=== PATIENT | male | born 2000 | race Caucasian/White ===

== ENCOUNTER 2022-05-14 11:57 | Emergency (ER) | payer OTHER, SELFPAY ==
[2022-05-14 12:00] VITALS: BP 157/105; PULSE 110; RESP 17; TEMP 36.4; O2SAT 99; BMI 24.9
--- NOTE | 2022-05-14 12:07 | DI.RAD.S_ITS ---
PROCEDURE: XR CHEST 1V INDICATIONS: Upper abdominal pain TECHNIQUE: One view of the chest was acquired. COMPARISON: None. FINDINGS: Surgical changes and devices: None. Lungs and pleura: Lungs are clear. No pleural effusions or pneumothorax. Mediastinum: Mediastinal contours appear normal. Heart size is normal. Bones and chest wall: No suspicious bony lesions. Overlying soft tissues appear unremarkable. IMPRESSION: No acute cardiopulmonary abnormality. Dictated by: Panchito Stubbs M.D. on 05/14/2022 at 12:18 Approved by: Panchito Stubbs M.D. on 05/14/2022 at 12:19
--- NOTE | 2022-05-14 12:16 | ED.ABDPAIN ---
HPI - Abdominal Pain <Kahlil Sarabia PA-C - Last Filed: 05/14/22 18:44> General Chief Complaint: Abdominal Pain Stated Complaint: abd pain hasnt eaten 3days nothing stays down Time Seen by Provider: 05/14/22 12:00 History of Present Illness HPI narrative: This is a 22-year-old male presents emergency department due to 3 days of nausea and vomiting. Also reporting epigastric abdominal pain. Patient states that he has been unable to keep anything down for the last 3 days. Anything he eats he vomits up. Denies any blood in the vomit. Also reports diarrhea but no other abnormalities in bowel movements. No blood in stool. Denies any fevers, chest pain, shortness of breath, or any other significant concerning signs or symptoms. States he has a history of GI ulcers and this feels very similar. Related Data Previous Rx's Medication Instructions Recorded ondansetron 4 mg disintegrating 4 mg PO Q8H PRN nausea and 05/14/22 tablet vomiting #30 tabs pantoprazole 40 mg tablet,delayed 40 mg PO BID 14 days #28 tabs 05/14/22 release Review of Systems <Kahlil Sarabia PA-C - Last Filed: 05/14/22 18:44> Review of Systems Narrative: GENERAL: Denies chills, fatigue, malaise, fever, sweats. HEENT: Denies sinus pain, ear pain, sore throat, difficulty swallowing, dizziness. RESPIRATORY: Denies dyspnea, cough, wheezing, hemoptysis, sputum. CARDIOVASCULAR: Denies chest pain, palpitations, orthopnea, edema, GASTROINTESTINAL: Reports abdominal pain, nausea, vomiting, denies diarrhea, constipation, melena. : Denies dysuria, frequency, incontinence, hematuria, urinary retention. MUSCULOSKELETAL: denies weakness, joint pain, or bony pain SKIN: Denies rash, skin lesions, or other NEUROLOGIC: Denies weakness, headache, numbness, change in speech, confusion, seizures, incoordination. PSYCHIATRIC: No concerning psychosocial issues. 12 point review of systems is negative except for those stated above Exam <Kahlil Sarabia PA-C - Last Filed: 05/14/22 18:44> Narrative Exam Narrative: GENERAL: Well-developed patient, in mild distress. HEAD: Atraumatic. Normocephalic. EYES: Pupils equal round and reactive. Extraocular motions intact. No scleral icterus. No injection or drainage. ENT: Nose without bleeding, purulent drainage. Throat without erythema, tonsillar hypertrophy or exudate. Airway patent. NECK: Trachea midline. Non tender CARDIOVASCULAR: Regular rate and rhythm without murmurs, gallops, or rubs. RESPIRATORY: Clear to auscultation. Breath sounds equal bilaterally. No wheezes, rales, or rhonchi. GASTROINTESTINAL: Abdomen soft, mild epigastric abdominal tenderness to palpation,, nondistended. EXTREMITIES: No edema or joint tenderness. BACK: Nontender without deformity or crepitance. No flank tenderness. NEURO: AOx3. SKIN: No rash or erythema of visible areas Initial Vital Signs Initial Vital Signs: Vital Signs Temperature 97.5 F L 05/14/22 12:00 Pulse Rate 110 H 05/14/22 12:00 Respiratory Rate 17 05/14/22 12:00 Blood Pressure 157/105 H 05/14/22 12:00 Pulse Oximetry 99 05/14/22 12:00 Oxygen Delivery Method 05/14/22 12:00 <Josue Alvarez DO - Last Filed: 05/17/22 02:31> Initial Vital Signs Initial Vital Signs: Vital Signs Temperature 97.5 F L 05/14/22 12:00 Pulse Rate 110 H 05/14/22 12:00 Respiratory Rate 17 05/14/22 12:00 Blood Pressure 157/105 H 05/14/22 12:00 Pulse Oximetry 99 05/14/22 12:00 Oxygen Delivery Method 05/14/22 12:00 Course <Kahlil Sarabia PA-C - Last Filed: 05/14/22 18:44> Orders Ordered: Discontinued Medications Sodium Chloride (Normal Saline 0.9%) 1,000 mls @ 1,000 mls/hr IV BOLUS ONE Stop: 05/14/22 13:06 Last Infusion: 05/14/22 13:55 Dose: 0 mls/hr Documented By: Admin: 05/14/22 12:21 Dose: 1,000 mls/hr Documented By: LYUBOV Lidocaine HCl (Lidocaine Viscous 2% 15 Ml Solution) 15 ml PO NOW ONE Stop: 05/14/22 12:22 Last Admin: 05/14/22 12:25 Dose: 15 ml Documented By: LYUBOV Ondansetron HCl (Ondansetron 4 Mg/2 Ml Inj) 4 mg IV NOW ONE Stop: 05/14/22 12:08 Last Admin: 05/14/22 12:21 Dose: 4 mg Documented By: LYUBOV Pantoprazole Sodium (Pantoprazole 40 Mg Vial) 40 mg IV NOW ONE Stop: 05/14/22 12:22 Last Admin: 05/14/22 12:25 Dose: 40 mg Documented By: LYUBOV Vital Signs Vital signs: Vital Signs - 8 hr 05/14/22 12:00 05/14/22 12:20 05/14/22 12:30 Temperature 97.5 F L Pulse Rate 110 H 92 H Respiratory Rate 17 22 Blood Pressure 157/105 H 151/96 H Pulse Oximetry 99 98 Oxygen Delivery Method Room Air 05/14/22 12:30 05/14/22 13:00 05/14/22 13:00 Temperature Pulse Rate 81 73 Respiratory Rate 22 22 Blood Pressure 148/88 H Pulse Oximetry 96 98 Oxygen Delivery Method 05/14/22 13:30 05/14/22 13:30 05/14/22 14:00 Temperature Pulse Rate 89 Respiratory Rate 20 Blood Pressure 154/75 H 156/94 H Pulse Oximetry 99 Oxygen Delivery Method 05/14/22 14:00 Temperature Pulse Rate 93 H Respiratory Rate 20 Blood Pressure Pulse Oximetry 100 Oxygen Delivery Method <Josue Alvarez, - Last Filed: 05/17/22 02:31> Orders Ordered: Discontinued Medications Sodium Chloride (Normal Saline 0.9%) 1,000 mls @ 1,000 mls/hr IV BOLUS ONE Stop: 05/14/22 13:06 Last Infusion: 05/14/22 13:55 Dose: 0 mls/hr Documented By: Admin: 05/14/22 12:21 Dose: 1,000 mls/hr Documented By: LYUBOV Lidocaine HCl (Lidocaine Viscous 2% 15 Ml Solution) 15 ml PO NOW ONE Stop: 05/14/22 12:22 Last Admin: 05/14/22 12:25 Dose: 15 ml Documented By: LYUBOV Ondansetron HCl (Ondansetron 4 Mg/2 Ml Inj) 4 mg IV NOW ONE Stop: 05/14/22 12:08 Last Admin: 05/14/22 12:21 Dose: 4 mg Documented By: LYUBOV Pantoprazole Sodium (Pantoprazole 40 Mg Vial) 40 mg IV NOW ONE Stop: 05/14/22 12:22 Last Admin: 05/14/22 12:25 Dose: 40 mg Documented By: CTS Vital Signs Vital signs: Vital Signs - 8 hr 05/14/22 12:00 05/14/22 12:20 05/14/22 12:30 Temperature 97.5 F L Pulse Rate 110 H 92 H Respiratory Rate 17 22 Blood Pressure 157/105 H 151/96 H Pulse Oximetry 99 98 Oxygen Delivery Method Room Air 05/14/22 12:30 05/14/22 13:00 05/14/22 13:00 Temperature Pulse Rate 81 73 Respiratory Rate 22 22 Blood Pressure 148/88 H Pulse Oximetry 96 98 Oxygen Delivery Method 05/14/22 13:30 05/14/22 13:30 05/14/22 14:00 Temperature Pulse Rate 89 Respiratory Rate 20 Blood Pressure 154/75 H 156/94 H Pulse Oximetry 99 Oxygen Delivery Method 05/14/22 14:00 Temperature Pulse Rate 93 H Respiratory Rate 20 Blood Pressure Pulse Oximetry 100 Oxygen Delivery Method MDM - Abdominal Pain <Kahlil Sarabia PA-C - Last Filed: 05/14/22 18:44> Lab Data Result diagrams: 05/14/22 12:10 05/14/22 12:10 Labs: Lab Results 05/14/22 05/14/22 Range/Units 12:10 12:10 WBC 9.5 (4.5-11.0) X10^3/uL RBC 4.95 (4.5-5.9) X10^6/uL Hgb 15.4 (13.5-17.5) g/dL Hct 45.5 (41-53) % MCV 91.9 (80-100) fL MCH 31.1 (26-34) PG MCHC 33.8 (30-36) % RDW 14.0 (11.6-14.8) % Plt Count 360 (150-400) X10^3/uL Neut % (Auto) 68.0 (50-75) % Lymph % (Auto) 19.3 L (25-40) % [place] % (Auto) 8.7 (3-14) % Eos % (Auto) 3.0 (2-4) % Baso % (Auto) 1.0 (0-2) % Neut # (Auto) 6500 (5383-0371) /uL Lymph # (Auto) 1800 (2539-8222) /uL [place] # (Auto) 800 (0-900) /uL Eos # (Auto) 300 (0-450) /uL Baso # (Auto) 100 (0-100) /uL Sodium 137 (137-145) mmol/L Potassium 3.7 (3.4-5.1) mmol/L Chloride 99 (98-107) mmol/L Carbon Dioxide 27 (22-32) mmol/L BUN 9 (9-20) mg/dL Creatinine 1.04 (0.66-1.25) mg/dL Estimated GFR > 60 (>60) mL/min BUN/Creatinine Ratio 8.7 (6-22) Glucose 94 (70-100) mg/dL Calcium 9.3 (8.4-10.2) mg/dL Total Bilirubin 1.6 H (0.2-1.3) mg/dL AST 79 H (17-59) IU/L ALT 65 H (<50) IU/L Alkaline Phosphatase 115 (38-126) U/L Total Protein 8.7 H (6.3-8.2) g/dL Albumin 5.0 (3.5-5.0) g/dL Globulin 3.7 (1.7-4.1) g/dL Albumin/Globulin Ratio 1.4 (1.0-2.8) Lipase 88 (23-300) U/L Imaging Data Chest x-ray: Radiologist's Impression: [address] [address] XRay Report Signed Patient: Kervin Castillo MR#: [id number] : 2000 Acct:[id number] Age/Sex: 22 / M Date of Service: 05/14/22 Loc: ED Accession Number: [id number] ?? Procedure: XR chest 1V Ordering Provider: Kahlil Sarabia P.A-C PROCEDURE:? XR CHEST 1V ? INDICATIONS:? Upper abdominal pain ? TECHNIQUE:? One view of the chest was acquired.? ? COMPARISON:? None. ? FINDINGS:? ? Surgical changes and devices:? None.? ? Lungs and pleura:? Lungs are clear.? No pleural effusions or pneumothorax.? ? Mediastinum:? Mediastinal contours appear normal.? Heart size is normal.? ? Bones and chest wall:? No suspicious bony lesions.? Overlying soft tissues appear unremarkable.? ? IMPRESSION:? No acute cardiopulmonary abnormality. ? ? ? Dictated by: Panchito Stubbs M.D. on 05/14/2022 at 12:18 ? ? Approved by: Panchito Stubbs M.D. on 05/14/2022 at 12:19 ? US - abdomen: Radiologist's Impression: [address] [address] Ultrasound Report Signed Patient: Kervin Castillo MR#: [id number] : 2000 Acct:[id number] Age/Sex: 22 / M Date of Service: 05/14/22 Loc: ED Accession Number: [id number] ?? Procedure: US abdomen limited Ordering Provider: Kahlil Sarabia P.A-C PROCEDURE: US ABDOMEN LIMITED ? INDICATIONS:? Eval RUQ gallbladder/liver ? TECHNIQUE:? Real-time focused scanning was performed of the abdomen, with image documentation.? ? COMPARISON:? None. ? FINDINGS:? The liver demonstrates normal size. The liver demonstrates generalized prominently increased echogenicity. This decreases ultrasound sensitivity for detection of hepatic masses.? ? No findings of gallstones or sludge are seen.? The gallbladder wall is not thickened, measuring 3 mm or less.? No specific pericholecystic fluid is seen.? The sonographic Enriquez sign is negative. ? Within the liver, there is echogenic material seen within the intrahepatic biliary ducts. ?There is no biliary dilatation, the common bile duct measures 3 mm.? ? The pancreas is not well seen. ? Overall scan quality is limited by the hyperechoic liver. ? IMPRESSION:? Prominently fatty liver. ? The gallbladder demonstrates a normal sonographic appearance. No biliary dilatation is seen. ? Apparent hyperechoic material can be seen within the intrahepatic biliary ducts.? Please correlate with known patient history.? If clinically appropriate, please consider a follow-up liver CT or liver MRI for further evaluation.? ? Dictated by: Arnulfo Manning M.D. on 05/14/2022 at 12:59 ? ? Approved by: Arnulfo Manning M.D. on 05/14/2022 at 13:01 ? MDM Narrative Medical decision making narrative: This is a 22-year-old male presents to the emergency department due to 3 days of nausea and vomiting with upper abdominal pain. States it has a history of ?GI ulcers and this feels very similar. Lab work unremarkable for any kind of infection or acute anemia. No electrolyte abnormalities. Chest x-ray negative for any kind of perforation and no free air noted. Right upper quadrant ultrasound was ordered due to mildly elevated liver enzymes and bilirubin. Ultrasound showed evidence of fatty liver as well as a ?apparent hyperechoic material can be seen in the intrahepatic biliary ducts? which I advised him to follow up with his primary care provider about. Patient will be discharged with a prescription for pantoprazole, Zofran, and instructions to eat a bland diet. Patient passed p.o. challenge. <Josue Alvarez DO - Last Filed: 05/17/22 02:31> Lab Data Labs: Lab Results 05/14/22 05/14/22 Range/Units 12:10 12:10 WBC 9.5 (4.5-11.0) X10^3/uL RBC 4.95 (4.5-5.9) X10^6/uL Hgb 15.4 (13.5-17.5) g/dL Hct 45.5 (41-53) % MCV 91.9 (80-100) fL MCH 31.1 (26-34) PG MCHC 33.8 (30-36) % RDW 14.0 (11.6-14.8) % Plt Count 360 (150-400) X10^3/uL Neut % (Auto) 68.0 (50-75) % Lymph % (Auto) 19.3 L (25-40) % [place] % (Auto) 8.7 (3-14) % Eos % (Auto) 3.0 (2-4) % Baso % (Auto) 1.0 (0-2) % Neut # (Auto) 6500 (2154-0954) /uL Lymph # (Auto) 1800 (4990-3976) /uL [place] # (Auto) 800 (0-900) /uL Eos # (Auto) 300 (0-450) /uL Baso # (Auto) 100 (0-100) /uL Sodium 137 (137-145) mmol/L Potassium 3.7 (3.4-5.1) mmol/L Chloride 99 (98-107) mmol/L Carbon Dioxide 27 (22-32) mmol/L BUN 9 (9-20) mg/dL Creatinine 1.04 (0.66-1.25) mg/dL Estimated GFR > 60 (>60) mL/min BUN/Creatinine Ratio 8.7 (6-22) Glucose 94 (70-100) mg/dL Calcium 9.3 (8.4-10.2) mg/dL Total Bilirubin 1.6 H (0.2-1.3) mg/dL AST 79 H (17-59) IU/L ALT 65 H (<50) IU/L Alkaline Phosphatase 115 (38-126) U/L Total Protein 8.7 H (6.3-8.2) g/dL Albumin 5.0 (3.5-5.0) g/dL Globulin 3.7 (1.7-4.1) g/dL Albumin/Globulin Ratio 1.4 (1.0-2.8) Lipase 88 (23-300) U/L Discharge Plan Departure Patient Disposition: Home Clinical Impression: Fatty liver, Gastrointestinal ulcer Instructions: DI for Gastric Ulcer, DI for Peptic Ulcer Activity Restrictions/Additional Instructions: Thank you for coming to the [facility] Emergency Department today. The chest x-ray showed no abnormalities and the right upper quadrant ultrasound showed evidence of fatty liver which are recommend you follow-up with the primary care provider about. Your lab work was unremarkable. There was no evidence of any electrolyte abnormalities or infection. I suspect this is a flare-up of your chronic GI ulcer. The pantoprazole and Zofran prescribed should help with your symptoms. Please eat a bland diet to avoid any future flare-ups. The more you avoid alcohol and smoking the less likely further flare-ups like this will happen. I hope you feel better soon. Prescriptions: New pantoprazole 40 mg tablet,delayed release (DR/EC) 40 mg PO BID 14 Days Qty: 28 0RF ondansetron 4 mg tablet,disintegrating 4 mg PO Q8H PRN (Reason: nausea and vomiting) Qty: 30 0RF Referrals: ProviderJoelle [Primary Care Provider] - Visit Report Forms: Patient Portal/API <Josue Alvarez DO - Last Filed: 05/17/22 02:31> Cosign ED Attending Pascualature Attestation: I was immediately available in the department for consultation. This documentation has been reviewed and I agree with assessment and plan. Supervised by Josue Alvarez, DO
[2022-05-14 12:20] VITALS: PULSE 92; RESP 22; O2SAT 98
[2022-05-14] MEDS: ONDANSETRON 4 MG/2 ML INJ IV (12:21)
[2022-05-14] MEDS: SODIUM CHLORIDE 0.9% 1,000 ML 1000 ML IV (12:21)
[2022-05-14] MEDS: LIDOCAINE VISCOUS 2% 15 ML SOLUTION PO (12:25)
[2022-05-14] MEDS: PANTOPRAZOLE 40 MG VIAL IV (12:25)
[2022-05-14 12:27] LABS: Add Manual Diff / Slide Review NO; Basophils Absolute Auto 100 /uL (0-100); Eosinophils Absolute Auto 300 /uL (0-450); Hematocrit 45.5 % (41-53); Hemoglobin 15.4 g/dL (13.5-17.5); Lymphocytes Absolute Auto 1800 /uL (1100-4500); Lymphocytes Percent Auto 19.3 % (25-40); Mean Corpuscular HGB Conc 33.8 % (30-36); Mean Corpuscular Hemoglobin 31.1 PG (26-34); Mean Corpuscular Volume 91.9 fL (80-100); Monocytes Absolute Auto 800 /uL (0-900); Monocytes Percent Auto 8.7 % (3-14); Neutrophils Absolute Auto 6500 /uL (1500-7000); Platelet Count 360 X10^3/uL (150-400); Red Blood Cell Count 4.95 X10^6/uL (4.5-5.9); White Blood Cell Count 9.5 X10^3/uL (4.5-11.0)
[2022-05-14 12:30] VITALS: BP 151/96; PULSE 81; RESP 22; O2SAT 96
[2022-05-14 12:34] LABS: Alanine Aminotransferase 65 IU/L (<50); Albumin Globulin Ratio 1.4 (1.0-2.8); Alkaline Phosphatase 115 U/L (38-126); Aspartate Aminotransferase 79 IU/L (17-59); BUN Creatinine Ratio 8.7 (6-22); Bilirubin Total 1.6 mg/dL (0.2-1.3); Blood Urea Nitrogen 9 mg/dL (9-20); Calcium 9.3 mg/dL (8.4-10.2); Carbon Dioxide 27 mmol/L (22-32); Chloride 99 mmol/L (98-107); Estimated Glomerular Filt Rate > 60 mL/min (>60); Globulin 3.7 g/dL (1.7-4.1); Glucose 94 mg/dL (70-100); HEMOLYSIS < 15 (0-50); Lipase 88 U/L (23-300); Potassium 3.7 mmol/L (3.4-5.1); Sodium 137 mmol/L (137-145); Total Protein 8.7 g/dL (6.3-8.2)
--- NOTE | 2022-05-14 12:57 | DI.US.S_ITS ---
PROCEDURE: US ABDOMEN LIMITED INDICATIONS: Eval RUQ gallbladder/liver TECHNIQUE: Real-time focused scanning was performed of the abdomen, with image documentation. COMPARISON: None. FINDINGS: The liver demonstrates normal size. The liver demonstrates generalized prominently increased echogenicity. This decreases ultrasound sensitivity for detection of hepatic masses. No findings of gallstones or sludge are seen. The gallbladder wall is not thickened, measuring 3 mm or less. No specific pericholecystic fluid is seen. The sonographic Enriquez sign is negative. Within the liver, there is echogenic material seen within the intrahepatic biliary ducts. There is no biliary dilatation, the common bile duct measures 3 mm. The pancreas is not well seen. Overall scan quality is limited by the hyperechoic liver. IMPRESSION: Prominently fatty liver. The gallbladder demonstrates a normal sonographic appearance. No biliary dilatation is seen. Apparent hyperechoic material can be seen within the intrahepatic biliary ducts. Please correlate with known patient history. If clinically appropriate, please consider a follow-up liver CT or liver MRI for further evaluation. Dictated by: Arnulfo Manning M.D. on 05/14/2022 at 12:59 Approved by: Arnulfo Manning M.D. on 05/14/2022 at 13:01
[2022-05-14 13:00] VITALS: BP 148/88; PULSE 73; RESP 22; O2SAT 98
[2022-05-14 13:30] VITALS: BP 154/75; PULSE 89; RESP 20; O2SAT 99
[2022-05-14 14:00] VITALS: BP 156/94; PULSE 93; RESP 20; O2SAT 100
== END 2022-05-14 14:22 | disposition home or self-care (01) ==
PROVIDERS: Emergency Provider Physician Assistant Medical
DX: K28.9 Gastrojejunal ulcer, unspecified as acute or chronic, without hemorrhage or perforation (principal); K76.0 Fatty (change of) liver, not elsewhere classified; R11.2 Nausea with vomiting, unspecified
CPT/HCPCS: 36415; 71045; 76705; 80053; 83690; 85025; 96361; 96374; 96375; 99284; C9113; J2405

== ENCOUNTER 2022-07-15 10:15 | Emergency (ER) | payer OTHER, SELFPAY ==
[2022-07-15 11:08] VITALS: BP 165/93; PULSE 75; RESP 18; TEMP 36.4; O2SAT 99; BMI 24.3
[2022-07-15] MEDS: ONDANSETRON 4 MG ODT SL (11:17)
[2022-07-15 13:03] LABS: Add Manual Diff / Slide Review NO; Basophils Absolute Auto 100 /uL (0-100); Basophils Percent Auto 1.2 % (0-2); Eosinophils Absolute Auto 100 /uL (0-450); Eosinophils Percent Auto 1.6 % (2-4); Hematocrit 48.8 % (41-53); Hemoglobin 16.4 g/dL (13.5-17.5); Lymphocytes Absolute Auto 900 /uL (1100-4500); Lymphocytes Percent Auto 13.4 % (25-40); Mean Corpuscular HGB Conc 33.7 % (30-36); Mean Corpuscular Hemoglobin 32.2 PG (26-34); Mean Corpuscular Volume 95.6 fL (80-100); Monocytes Absolute Auto 800 /uL (0-900); Monocytes Percent Auto 11.7 % (3-14); Neutrophils Absolute Auto 5000 /uL (1500-7000); Neutrophils Percent Auto 72.1 % (50-75); Platelet Count 266 X10^3/uL (150-400); Red Cell Distribution Width 15.3 % (11.6-14.8)
--- NOTE | 2022-07-15 13:05 | ED_ITS ---
HPI - GI Bleed <MARTA Solares - Last Filed: 07/15/22 16:00> General Chief complaint: GI Bleed Stated complaint: possible dehydration, diarrhea x4 days Time Seen by Provider: 07/15/22 13:02 Source: patient Mode of arrival: Ambulatory History of Present Illness HPI Narrative: This is a 22-year-old male who has significant medical history upper GI bleeding due to gastric ulcers, GERD, who presents to the emergency department with worsening symptoms over the last 2 months with hematochezia, melena, states that he has had diarrhea over the last 4 days. He is enrolled in the [facility], states that he has had 9 upper endoscopies with findings of gastric ulcer but since he has been in the [facility], he has not been on sustained PPI or had any long-term care for his upper GI bleeding. States that he has had an ultrasound and an x-ray of his chest but his doctors would not approve a CT scan so he was sent to the emergency department for evaluation of his complaint. Patient denies fever, chills, states that he thinks he is dehydrated and feels that he has not kept anything down any couple of days or has gone right through him. He denies having a large amount of blood in these episodes of emesis or diarrhea. Denies having hemorrhoids. States that he does not take ibuprofen, drink coffee, denies heavy alcohol use, states that he has had history of GERD since he was 11 years old. Related Data Previous Rx's Medication Instructions Recorded ondansetron 4 mg disintegrating 4 mg PO Q8H PRN nausea and 05/14/22 tablet vomiting #30 tabs amoxicillin 875 mg-potassium 1 tab PO BID 7 days #14 tabs 07/15/22 clavulanate 125 mg tablet omeprazole 40 mg capsule,delayed 40 mg PO BID #90 caps 07/15/22 release ondansetron 4 mg disintegrating 4 mg PO Q8H PRN nausea and 07/15/22 tablet vomiting #30 tabs sucralfate 1 gram tablet (Carafate) 1 g PO BID PRN upper gi pain #60 07/15/22 tabs Allergies Allergy/AdvReac Type Severity Reaction Status Date / Time No Known Drug Allergies Allergy Verified 07/15/22 11:08 Review of Systems <MARTA Solares - Last Filed: 07/15/22 16:00> Review of Systems ROS Unobtainable: All systems reviewed & are unremarkable except as noted in HPI and below Patient History <MARTA Solares - Last Filed: 07/15/22 16:00> Social History Smoking Status: Never smoker Smoking Status: Never smoker alcohol intake frequency: holidays/special occasions only Substance Use Type: does not use Exam <MARTA Solares - Last Filed: 07/15/22 16:00> Narrative Exam Narrative: Reviewed vitals signs and nursing notes. General: cooperative, comfortable, in no acute distress, well groomed, afebrile HEENT: symmetrical facial expressions, dry mucous membranes Cardiovascular: regular rate and rhythm, without tachycardia, pallor, no peripheral edema, warm extremities Respiratory: normal effort, able to speak in complete sentences, without wheezing, stridor, or abnormal breath sounds. Without cough. No retractions or tachypnea. GI: abdomen soft, tender to palpation over the epigastrium, nontender to palpation otherwise, nondistended, without masses, rebound tenderness or exquisite tenderness with exam yes. No CVAT MSK: moves all extremities, neurovascularly intact, no weakness, normal tone Skin: brisk capillary refill, without pallor diaphoresis, or erythema Neuro: normal speech and cognition, A&O x3, ambulatory, clear speech Psych: mental status is grossly normal, congruent mood, normal affect, pleasant and cooperative Initial Vital Signs Initial Vital Signs: Vital Signs Temperature 97.6 F 07/15/22 11:08 Pulse Rate 75 07/15/22 11:08 Respiratory Rate 18 07/15/22 11:08 Blood Pressure 165/93 H 07/15/22 11:08 Pulse Oximetry 99 07/15/22 11:08 Oxygen Delivery Method 07/15/22 11:08 <Josue Alvarez DO - Last Filed: 07/17/22 11:02> Initial Vital Signs Initial Vital Signs: Vital Signs Temperature 97.6 F 07/15/22 11:08 Pulse Rate 75 07/15/22 11:08 Respiratory Rate 18 07/15/22 11:08 Blood Pressure 165/93 H 07/15/22 11:08 Pulse Oximetry 99 07/15/22 11:08 Oxygen Delivery Method 07/15/22 11:08 Course <Maryse Felix PROSECUTING ATTORNEY - Last Filed: 07/15/22 16:00> Orders Ordered: Discontinued Medications Acetaminophen (Acetaminophen 325 Mg Tablet) 975 mg PO NOW ONE Stop: 07/15/22 14:52 Last Admin: 07/15/22 15:48 Dose: 975 mg Documented By: GUILHERME Amoxicillin/Clavulanate Potassium (Amoxicillin/Clav 875/125 Mg) 1 tab PO NOW ONE Stop: 07/15/22 14:43 Last Admin: 07/15/22 14:47 Dose: 1 tab Documented By: GUILHERME Al Hydrox/Mg Hydrox/Simethicone 20 ml/ Lidocaine HCl 15 ml 0 ml PO NOW ONE Stop: 07/15/22 13:03 Last Admin: 07/15/22 13:18 Dose: 30 ml Documented By: GUILHERME Hydromorphone HCl (Hydromorphone 0.5 Mg Inj) 0.5 mg IV NOW ONE Stop: 07/15/22 13:30 Last Admin: 07/15/22 13:33 Dose: 0.5 mg Documented By: GUILHERME Sodium Chloride (Normal Saline 0.9%) 1,000 mls @ 1,000 mls/hr IV BOLUS ONE Stop: 07/15/22 14:09 Last Infusion: 07/15/22 14:40 Dose: 0 mls/hr Documented By: Admin: 07/15/22 13:19 Dose: 1,000 mls/hr Documented By: GUILHERME Lidocaine HCl (Lidocaine Viscous 2% 15 Ml Solution) 15 ml PO NOW ONE Stop: 07/15/22 13:31 Last Admin: 07/15/22 13:31 Dose: 15 ml Documented By: GUILHERME Ondansetron HCl (Ondansetron 4 Mg/2 Ml Inj) 4 mg IV NOW PRN PRN Reason: Nausea And Vomiting Last Admin: 07/15/22 13:31 Dose: 4 mg Documented By: GUILHERME Ondansetron HCl (Ondansetron 4 Mg Odt) 4 mg SL NOW PRN PRN Reason: Nausea And Vomiting Last Admin: 07/15/22 11:17 Dose: 4 mg Documented By: YOBANY Pantoprazole Sodium (Pantoprazole 40 Mg Vial) 80 mg IV NOW ONE Stop: 07/15/22 11:16 Last Admin: 07/15/22 13:17 Dose: 80 mg Documented By: GUILHERME Sucralfate (Sucralfate 1 Gm/10 Ml Oral Susp) 1 gm PO NOW ONE Stop: 07/15/22 13:31 Last Admin: 07/15/22 13:31 Dose: 1 gm Documented By: GUILHERME Vital Signs Vital signs: Vital Signs - 8 hr 07/15/22 11:08 07/15/22 13:20 07/15/22 15:32 Temperature 97.6 F Pulse Rate 75 80 65 Respiratory Rate 18 18 14 Blood Pressure 165/93 H 150/75 H 158/85 H Pulse Oximetry 99 99 100 Oxygen Delivery Method Room Air Room Air <Josue Alvarez DO - Last Filed: 07/17/22 11:02> Orders Ordered: Discontinued Medications Acetaminophen (Acetaminophen 325 Mg Tablet) 975 mg PO NOW ONE Stop: 07/15/22 14:52 Last Admin: 07/15/22 15:48 Dose: 975 mg Documented By: GUILHERME Amoxicillin/Clavulanate Potassium (Amoxicillin/Clav 875/125 Mg) 1 tab PO NOW ONE Stop: 07/15/22 14:43 Last Admin: 07/15/22 14:47 Dose: 1 tab Documented By: GUILHERME Al Hydrox/Mg Hydrox/Simethicone 20 ml/ Lidocaine HCl 15 ml 0 ml PO NOW ONE Stop: 07/15/22 13:03 Last Admin: 07/15/22 13:18 Dose: 30 ml Documented By: GUILHERME Hydromorphone HCl (Hydromorphone 0.5 Mg Inj) 0.5 mg IV NOW ONE Stop: 07/15/22 13:30 Last Admin: 07/15/22 13:33 Dose: 0.5 mg Documented By: GUILHERME Sodium Chloride (Normal Saline 0.9%) 1,000 mls @ 1,000 mls/hr IV BOLUS ONE Stop: 07/15/22 14:09 Last Infusion: 07/15/22 14:40 Dose: 0 mls/hr Documented By: Admin: 07/15/22 13:19 Dose: 1,000 mls/hr Documented By: GUILHERME Lidocaine HCl (Lidocaine Viscous 2% 15 Ml Solution) 15 ml PO NOW ONE Stop: 07/15/22 13:31 Last Admin: 07/15/22 13:31 Dose: 15 ml Documented By: GUILHERME Ondansetron HCl (Ondansetron 4 Mg/2 Ml Inj) 4 mg IV NOW PRN PRN Reason: Nausea And Vomiting Last Admin: 07/15/22 13:31 Dose: 4 mg Documented By: GUILHERME Ondansetron HCl (Ondansetron 4 Mg Odt) 4 mg SL NOW PRN PRN Reason: Nausea And Vomiting Last Admin: 07/15/22 11:17 Dose: 4 mg Documented By: YOBANY Pantoprazole Sodium (Pantoprazole 40 Mg Vial) 80 mg IV NOW ONE Stop: 07/15/22 11:16 Last Admin: 07/15/22 13:17 Dose: 80 mg Documented By: GUILHERME Sucralfate (Sucralfate 1 Gm/10 Ml Oral Susp) 1 gm PO NOW ONE Stop: 07/15/22 13:31 Last Admin: 07/15/22 13:31 Dose: 1 gm Documented By: GUILHERME Vital Signs Vital signs: Vital Signs - 8 hr 07/15/22 11:08 07/15/22 13:20 07/15/22 15:32 Temperature 97.6 F Pulse Rate 75 80 65 Respiratory Rate 18 18 14 Blood Pressure 165/93 H 150/75 H 158/85 H Pulse Oximetry 99 99 100 Oxygen Delivery Method Room Air Room Air MDM - GI Bleed <MARTA Solares - Last Filed: 07/15/22 16:00> Lab Data Result diagrams: 07/15/22 12:25 07/15/22 12:25 Labs: Lab Results 07/15/22 07/15/22 07/15/22 Range/Units 12:25 12:25 12:25 WBC 7.0 (4.5-11.0) X10^3/uL RBC 5.10 (4.5-5.9) X10^6/uL Hgb 16.4 (13.5-17.5) g/dL Hct 48.8 (41-53) % MCV 95.6 (80-100) fL MCH 32.2 (26-34) PG MCHC 33.7 (30-36) % RDW 15.3 H (11.6-14.8) % Plt Count 266 (150-400) X10^3/uL Neut % (Auto) 72.1 (50-75) % Lymph % (Auto) 13.4 L (25-40) % Vent[place] % (Auto) 11.7 (3-14) % Eos % (Auto) 1.6 L (2-4) % Baso % (Auto) 1.2 (0-2) % Neut # (Auto) 5000 (6136-5724) /uL Lymph # (Auto) 900 L (0625-3179) /uL [place] # (Auto) 800 (0-900) /uL Eos # (Auto) 100 (0-450) /uL Baso # (Auto) 100 (0-100) /uL PT 12.2 (10.1-12.7) SECONDS INR 1.1 (0.9-1.3) APTT 32 (26-36) SECONDS Sodium 136 L (137-145) mmol/L Potassium 4.0 (3.4-5.1) mmol/L Chloride 97 L (98-107) mmol/L Carbon Dioxide 29 (22-32) mmol/L BUN 7 L (9-20) mg/dL Creatinine 0.93 (0.66-1.25) mg/dL Estimated GFR > 60 (>60) mL/min BUN/Creatinine Ratio 7.5 (6-22) Glucose 93 (70-100) mg/dL Calcium 9.4 (8.4-10.2) mg/dL Total Bilirubin 2.7 H (0.2-1.3) mg/dL AST 179 H (17-59) IU/L ALT 100 H (<50) IU/L Alkaline Phosphatase 121 (38-126) U/L Total Protein 8.4 H (6.3-8.2) g/dL Albumin 4.7 (3.5-5.0) g/dL Globulin 3.7 (1.7-4.1) g/dL Albumin/Globulin Ratio 1.3 (1.0-2.8) Lipase (23-300) U/L SARS-CoV-2 (PCR) (Negative) Influenza A (RT-PCR) (NEGATIVE) Influenza B (RT-PCR) (NEGATIVE) RSV (PCR) (Negative) 07/15/22 07/15/22 Range/Units 12:26 13:57 WBC (4.5-11.0) X10^3/uL RBC (4.5-5.9) X10^6/uL Hgb (13.5-17.5) g/dL Hct (41-53) % MCV (80-100) fL MCH (26-34) PG MCHC (30-36) % RDW (11.6-14.8) % Plt Count (150-400) X10^3/uL Neut % (Auto) (50-75) % Lymph % (Auto) (25-40) % Ventura % (Auto) (3-14) % Eos % (Auto) (2-4) % Baso % (Auto) (0-2) % Neut # (Auto) (4205-5255) /uL Lymph # (Auto) (8084-2639) /uL [place]ura # (Auto) (0-900) /uL Eos # (Auto) (0-450) /uL Baso # (Auto) (0-100) /uL PT (10.1-12.7) SECONDS INR (0.9-1.3) APTT (26-36) SECONDS Sodium (137-145) mmol/L Potassium (3.4-5.1) mmol/L Chloride (98-107) mmol/L Carbon Dioxide (22-32) mmol/L BUN (9-20) mg/dL Creatinine (0.66-1.25) mg/dL Estimated GFR (>60) mL/min BUN/Creatinine Ratio (6-22) Glucose (70-100) mg/dL Calcium (8.4-10.2) mg/dL Total Bilirubin (0.2-1.3) mg/dL AST (17-59) IU/L ALT (<50) IU/L Alkaline Phosphatase (38-126) U/L Total Protein (6.3-8.2) g/dL Albumin (3.5-5.0) g/dL Globulin (1.7-4.1) g/dL Albumin/Globulin Ratio (1.0-2.8) Lipase 69 (23-300) U/L SARS-CoV-2 (PCR) Negative (Negative) Influenza A (RT-PCR) Flu a negative (NEGATIVE) Influenza B (RT-PCR) Flu b negative (NEGATIVE) RSV (PCR) Negative (Negative) Imaging Data CT scan - abdomen/pelvis: Radiologist's Impression: [address] [address] [address] Scan Report Signed Patient: Kervin Castillo MR#: [id number] : 2000 Acct:[id number] Age/Sex: 22 / M Date of Service: 07/15/22 Loc: ED Accession Number: [id number] ?? Procedure: CT abdomen pelvis w con Ordering Provider: Maryse Felix PROCEDURE:? CT ABDOMEN PELVIS W CON ? INDICATIONS:? abd pain w/history of gastric ulcer, fatty liver ? TECHNIQUE:? After the administration of intravenous contrast, axial sections acquired from the lung bases to the pubic symphysis.? Coronal and sagittal reformats were performed.? For radiation dose reduction, the following was used:? automated exposure control, adjustment of mA and/or kV according to patient size.? ? COMPARISON:? None. ? FINDINGS:? Image quality:? Excellent.? ? Lung bases:? Unremarkable. Heart:? No significant findings. ? ABDOMEN: Liver:? The liver is diffusely hypodense suggesting fatty infiltration.? Focal fatty sparing is present at the gallbladder fossa. Gallbladder:? Unremarkable. Biliary ducts:? Unremarkable.? ? Pancreas:? Unremarkable.? ? Spleen:? Unremarkable.? ? Adrenal Glands:? Unremarkable.? ? Kidneys and Ureters:? Unremarkable.? ? ? Stomach and Bowel:? The stomach and small bowel demonstrate normal caliber and wall thickness.? There is some wall thickening of the ascending colon and the right aspect of the transverse colon raising the suspicion for mild colitis.? Mild pericolonic fat stranding is present in this region.? No pneumatosis. The appendix is not visualized; however there is no discrete right lower quadrant fluid or fat stranding to suggest acute appendicitis. Peritoneum:? No abnormal intraperitoneal fluid.? No free air.? ? Ventral Wall: ? No hernias.? Abdominal Nodes:? No retroperitoneal or mesenteric adenopathy by size criteria.? Vessels:? Aorta and inferior vena cava are normal in size.? ? PELVIS: Pelvic Organs:? Unremarkable.? ? Bladder:? Unremarkable.? ? Pelvic Nodes: No enlarged lymph nodes.? Miscellaneous: No hernias are seen. ? ? ? Bones:? A 2.2 x 1.2 cm centrally lucent, peripherally sclerotic lesion is present within the left iliac bone (series 2/image 58).? No other suspicious bony lesions. ? ? IMPRESSION:? ? 1. Hepatic steatosis. ? 2. Mild wall thickening and pericolonic fat stranding of the right hemicolon suggesting a mild colitis.? No obstruction, pneumatosis, or abscess. ? 3. The appendix is not visualized; however there are no discrete ancillary findings within the right lower quadrant to suggest acute appendicitis. ? 4. Lucent lesion within the left iliac bone which may represent a bone cyst.? No prior studies are available for comparison.? If asymptomatic, consider 1-3 month plain film follow-up to ensure stability of this finding and establish baseline if further follow-up is needed.? ? Dictated by: Radha Messina M.D. on 07/15/2022 at 14:06 ? ? Approved by: Radha Messina M.D. on 07/15/2022 at 14:17 ? MDM Narrative Medical decision making narrative: This is a 22-year-old male who is presenting to the ED via POV with 4 days of diarrhea, epigastric pain, with hematochezia and melena with history of GERD, gastric ulcer, and is not on PPI or immunosuppression. Patient denies history of alcoholism, gastric varices, recent abdominal ultrasound from May 2022 shows fatty liver without gallstones, cholelithiasis or other acute abnormal fin ding. Differential diagnoses include, but are not limited to: ?Acute cholecystitis, choledocholithiasis, cholangitis, gastritis, esophagitis with underlying GERD, gastric/duodenal/peptic ulcer with acute hemorrhage, chronic gastric/other ulcer, H pylori, Smiley-Canales tear, bleeding esophageal varices, ulcerative colitis, infectious colitis, viral gastroenteritis or other acute viral process including COVID, influenza or RSV, appendicitis, acute cystitis, nephrolithiasis, pyelonephritis, AAA, ACS. Course of Care: 1320 patient, history of gastric ulcers, recurrent bleeding and hematochezia with melena. Patient complains of epigastric pain 01/18, not currently having other symptoms. Reviewed patient's prior lab work and imaging from 05/14/2022 showing fatty liver on abdominal ultrasound without acute other abnormality. No history of endoscopy, colonoscopy or GI consult on prior records at this hospital. Placed orders for IV fluids, pain medication, GI cocktail, Protonix 80 mg IV, CT abdomen and pelvis due to lab work showing worsening a patient's total bilirubin from 1.6-2.7, prior lab work is 05/14/2022, increase of AST from 79-179, ALT of 65-100. Discussion of Management with other Health Professionals: Patient's symptoms improved over duration of stay with above-stated therapies. Routine labs, abdominal ultrasound, urinalysis, lipase and abdominal CT with contrast ordered. ?Patient provided GI cocktail Dilaudid, 1 L normal saline, Zofran, and Protonix 80 mg IV for discomfort. ? 1450:?Review of labs demonstrates: No leukocytosis or anemia, hemoconcentration, without a left shift, mild drop in lymphocytic presence, normal coagulation time, no significant electrolyte abnormalities, respiratory panel negative for COVID, influenza a, B, and RSV. 1440: Review of CT demonstrates findings of hepatic steatosis, mild pericolonic fat stranding and mild wall thickening of the right hemicolon suggesting mild colitis without obstruction, fluid collection, without findings to suggest appendicitis and an incidental lucent lesion within the left iliac bone which may represent a bone cyst. 1450:?Case discussed with Dr. Alvarez, opted to treat patient with antibiotics fo r colitis since his symptoms have been ongoing for 2 months with GI bleeding, reviewed lab work, will order abdominal ultrasound to evaluate for gallbladder etiology or biliary duct dilatation 1530 pending ultrasound report, patient received his medications and IV fluid and states that he feels better however now he has a headache and request Tylenol. Tylenol is ordered, will follow-up on ultrasound results. Ultrasound shows increased hepatic echogenicity noted likely related to fatty infiltration of the liver, no cholelithiasis or choledocholithiasis or acute cholecystitis. The liver measures 20 cm with increased echogenicity. Negative Enriquez's sign. Patient's symptoms continue to improve after the Tylenol was given, he is not tachycardic, low suspicion for acute abdomen, respiratory panel is negative for tested viral illnesses. This is most likely colitis with gastrointestinal blee ding secondary to history of gastrointestinal bleed but differential is expanded to include alcoholic cirrhosis/liver disease. Patient was provided copies of his scan so he can follow-up with [facility]. He was provided contact information for [facility] to set up follow-up endoscopy, H pylori testing, or other testing as needed. Recommend that he follow-up with [facility]. There does not appear to be any emergent causes to keep him in the hospital or any surgical etiology. Patient is not anemic, he is A&O x3 and his symptoms have improved. Encouraged to stay hydrated, use Carafate, Prilosec 40 mg b.i.d., avoid caffeine, acid, alcohol, spicy food and have urgent follow-up. He was provided a prescription of Augmentin to treat for infectious diarrhea if his symptoms worsen or if he develops fever. He understands to return if he has worsening blood loss, fever chills, or worsening hematochezia. Patient is appropriate and amenable to discharge home. Vital signs are stable on repeat examination is unremarkable. Patient has been informed of results. Patient has been given strict return to ER precautions for any new or worsening symptoms. Patient understands to follow up closely with outpatient providers as instructed. Patient understands plan and agrees to discharge home. All questions and concerns answered at this time. MIPS: This encounter doesn't have any diagnosis associated with MIPS criteria. Social determinants of health that may impact treatment or disposition: None Vital Signs: I, the ED provider, reviewed the patient?s vital signs, past med ical records and encounters if available, and nursing notes. I have spoken with the patient/family and discussed today?s findings whom verbalize understanding. Counseling was provided regarding the diagnosis and prognosis, and specific details were provided for the plan of care. Questions are addressed and there is agreement with the plan and for follow-up. Patient is appropriate for outpatient management. Portions of this chart have been created with [employer] voice recognition software. Occasional wrong word or sound alike substitutions may have occurred due to the inherent limitations of this software. I, MARTA Pearson, personally performed the services described in the documentation, and it accurately records my words and actions. I collaborated with the ED attending physician for AKASH level 2, 3, and some level 4s as needed Electronically signed by: MARTA Pearson ? <Josue Alvarez, DO - Last Filed: 07/17/22 11:02> Lab Data Labs: Lab Results 07/15/22 07/15/22 07/15/22 Range/Units 12:25 12:25 12:25 WBC 7.0 (4.5-11.0) X10^3/uL RBC 5.10 (4.5-5.9) X10^6/uL Hgb 16.4 (13.5-17.5) g/dL Hct 48.8 (41-53) % MCV 95.6 (80-100) fL MCH 32.2 (26-34) PG MCHC 33.7 (30-36) % RDW 15.3 H (11.6-14.8) % Plt Count 266 (150-400) X10^3/uL Neut % (Auto) 72.1 (50-75) % Lymph % (Auto) 13.4 L (25-40) % Ventura % (Auto) 11.7 (3-14) % Eos % (Auto) 1.6 L (2-4) % Baso % (Auto) 1.2 (0-2) % Neut # (Auto) 5000 (2734-9858) /uL Lymph # (Auto) 900 L (2549-4646) /uL Ventura # (Auto) 800 (0-900) /uL Eos # (Auto) 100 (0-450) /uL Baso # (Auto) 100 (0-100) /uL PT 12.2 (10.1-12.7) SECONDS INR 1.1 (0.9-1.3) APTT 32 (26-36) SECONDS Sodium 136 L (137-145) mmol/L Potassium 4.0 (3.4-5.1) mmol/L Chloride 97 L (98-107) mmol/L Carbon Dioxide 29 (22-32) mmol/L BUN 7 L (9-20) mg/dL Creatinine 0.93 (0.66-1.25) mg/dL Estimated GFR > 60 (>60) mL/min BUN/Creatinine Ratio 7.5 (6-22) Glucose 93 (70-100) mg/dL Calcium 9.4 (8.4-10.2) mg/dL Total Bilirubin 2.7 H (0.2-1.3) mg/dL AST 179 H (17-59) IU/L ALT 100 H (<50) IU/L Alkaline Phosphatase 121 (38-126) U/L Total Protein 8.4 H (6.3-8.2) g/dL Albumin 4.7 (3.5-5.0) g/dL Globulin 3.7 (1.7-4.1) g/dL Albumin/Globulin Ratio 1.3 (1.0-2.8) Lipase (23-300) U/L SARS-CoV-2 (PCR) (Negative) Influenza A (RT-PCR) (NEGATIVE) Influenza B (RT-PCR) (NEGATIVE) RSV (PCR) (Negative) 07/15/22 07/15/22 Range/Units 12:26 13:57 WBC (4.5-11.0) X10^3/uL RBC (4.5-5.9) X10^6/uL Hgb (13.5-17.5) g/dL Hct (41-53) % MCV (80-100) fL MCH (26-34) PG MCHC (30-36) % RDW (11.6-14.8) % Plt Count (150-400) X10^3/uL Neut % (Auto) (50-75) % Lymph % (Auto) (25-40) % Ventura % (Auto) (3-14) % Eos % (Auto) (2-4) % Baso % (Auto) (0-2) % Neut # (Auto) (0192-3703) /uL Lymph # (Auto) (4933-3342) /uL [place]ura # (Auto) (0-900) /uL Eos # (Auto) (0-450) /uL Baso # (Auto) (0-100) /uL PT (10.1-12.7) SECONDS INR (0.9-1.3) APTT (26-36) SECONDS Sodium (137-145) mmol/L Potassium (3.4-5.1) mmol/L Chloride (98-107) mmol/L Carbon Dioxide (22-32) mmol/L BUN (9-20) mg/dL Creatinine (0.66-1.25) mg/dL Estimated GFR (>60) mL/min BUN/Creatinine Ratio (6-22) Glucose (70-100) mg/dL Calcium (8.4-10.2) mg/dL Total Bilirubin (0.2-1.3) mg/dL AST (17-59) IU/L ALT (<50) IU/L Alkaline Phosphatase (38-126) U/L Total Protein (6.3-8.2) g/dL Albumin (3.5-5.0) g/dL Globulin (1.7-4.1) g/dL Albumin/Globulin Ratio (1.0-2.8) Lipase 69 (23-300) U/L SARS-CoV-2 (PCR) Negative (Negative) Influenza A (RT-PCR) Flu a negative (NEGATIVE) Influenza B (RT-PCR) Flu b negative (NEGATIVE) RSV (PCR) Negative (Negative) Discharge Plan Departure Patient Disposition: Home Clinical Impression: Bright red blood per rectum, Hx of gastric ulcer, Fatty liver, Colitis Abdominal pain Qualifiers: Abdominal location: epigastric Qualified Code(s): R10.13 - Epigastric pain Instructions: Diarrhea, Ulcerative Colitis, Gastric Ulcer, Duodenal Ulcer, Gastrointestinal Bleeding, DI for Colitis Activity Restrictions/Additional Instructions: *You have been diagnosed with history of gastric ulcer with likely ulcer and GI bleeding again. Please use the Carafate to COVID your stomach, avoid any spicy foods, acidic foods, coffee, tea, or anything that would erode the mucosal layer. Avoid ibuprofen. Use Tylenol as needed for your pain, eat small frequent meals so that your stomach has something to do with the acid. Thank you for waiting such a long time today, I think that you were fairly dehydrated. Please focus on staying hydrated, I have prescribed for you an antibiotic to help treat presumably infectious diarrhea. Please follow-up accordingly and return for new or worsening symptoms. *What to do: *Please continue to take your regular medications as directed. [ x] New medication prescriptions sent to your pharmacy: [[facility] [place] ] [ ] New medication written as a paper prescription [ ] No new medications given *Please follow up with your primary care provider in 2-3 days, call for an appointment. Let them know you were seen in the Emergency Department and that we asked that you be seen for follow-up. We will electronically transmit a record of today's note if your PCP is in our system *If you do not have a primary care provider please contact [phone] to [facility] with one of the [facility] primary care providers. *Return to Emergency Department if you should have any new, worsening, or concerning symptoms, such as [fever greater than 101F, chills, worsening pain, persistent vomiting or other bothersome symptoms]. Prescriptions: New sucralfate [Carafate] 1 gram tablet 1 g PO BID PRN (Reason: upper gi pain) Qty: 60 4RF omeprazole 40 mg capsule,delayed release(DR/EC) 40 mg PO BID Qty: 90 5RF Rx Instructions: Take 40 mg twice a day for the 1st week to 2 weeks and then 40 mg daily thereafter ondansetron 4 mg tablet,disintegrating 4 mg PO Q8H PRN (Reason: nausea and vomiting) Qty: 30 0RF amoxicillin-pot clavulanate 875-125 mg tablet 1 tab PO BID 7 Days Qty: 14 0RF No Action ondansetron 4 mg tablet,disintegrating 4 mg PO Q8H PRN (Reason: nausea and vomiting) Qty: 30 0RF Referrals: [facility] [Provider Group] - 3-5 days (For follow-up en doscopy/colonoscopy, testing for H pylori, or other management of this for you. Please obtain referral from PCP if needed) Provider,Joelle CAGLE [Primary Care Provider] - Stand Alone Forms: Patient Portal/API <Josue Alvarez DO - Last Filed: 07/17/22 11:02> Cosign ED Attending Cosignature Attestation: I was immediately available in the department for consultation. This documentation has been reviewed and I agree with assessment and plan. Supervised by Josue Alvarez DO
[2022-07-15 13:07] LABS: INR 1.1 (0.9-1.3); Prothrombin Time 12.2 SECONDS (10.1-12.7)
[2022-07-15 13:10] LABS: PTT Partial Thromboplastin Tim 32 SECONDS (26-36)
[2022-07-15 13:13] LABS: Alanine Aminotransferase 100 IU/L (<50); Albumin 4.7 g/dL (3.5-5.0); Albumin Globulin Ratio 1.3 (1.0-2.8); Alkaline Phosphatase 121 U/L (38-126); Aspartate Aminotransferase 179 IU/L (17-59); BUN Creatinine Ratio 7.5 (6-22); Bilirubin Total 2.7 mg/dL (0.2-1.3); Blood Urea Nitrogen 7 mg/dL (9-20); Calcium 9.4 mg/dL (8.4-10.2); Carbon Dioxide 29 mmol/L (22-32); Chloride 97 mmol/L (98-107); Estimated Glomerular Filt Rate > 60 mL/min (>60); Globulin 3.7 g/dL (1.7-4.1); Glucose 93 mg/dL (70-100); HEMOLYSIS < 15 (0-50); Sodium 136 mmol/L (137-145); Total Protein 8.4 g/dL (6.3-8.2)
[2022-07-15] MEDS: PANTOPRAZOLE 40 MG VIAL 80 MG IV (13:17)
[2022-07-15] MEDS: MAG HYDROX/ALUMINUM/SIMETH SUS 20 ML, LIDOCAINE VISCOUS 2% 15 ML PO (13:18)
[2022-07-15] MEDS: SODIUM CHLORIDE 0.9% 1,000 ML 1000 ML IV (13:19)
[2022-07-15 13:20] VITALS: BP 150/75; PULSE 80; RESP 18; O2SAT 99
--- NOTE | 2022-07-15 13:26 | DI.CT.S_ITS ---
PROCEDURE: CT ABDOMEN PELVIS W CON INDICATIONS: abd pain w/history of gastric ulcer, fatty liver TECHNIQUE: After the administration of intravenous contrast, axial sections acquired from the lung bases to the pubic symphysis. Coronal and sagittal reformats were performed. For radiation dose reduction, the following was used: automated exposure control, adjustment of mA and/or kV according to patient size. COMPARISON: None. FINDINGS: Image quality: Excellent. Lung bases: Unremarkable. Heart: No significant findings. ABDOMEN: Liver: The liver is diffusely hypodense suggesting fatty infiltration. Focal fatty sparing is present at the gallbladder fossa. Gallbladder: Unremarkable. Biliary ducts: Unremarkable. Pancreas: Unremarkable. Spleen: Unremarkable. Adrenal Glands: Unremarkable. Kidneys and Ureters: Unremarkable. Stomach and Bowel: The stomach and small bowel demonstrate normal caliber and wall thickness. There is some wall thickening of the ascending colon and the right aspect of the transverse colon raising the suspicion for mild colitis. Mild pericolonic fat stranding is present in this region. No pneumatosis. The appendix is not visualized; however there is no discrete right lower quadrant fluid or fat stranding to suggest acute appendicitis. Peritoneum: No abnormal intraperitoneal fluid. No free air. Ventral Wall: No hernias. Abdominal Nodes: No retroperitoneal or mesenteric adenopathy by size criteria. Vessels: Aorta and inferior vena cava are normal in size. PELVIS: Pelvic Organs: Unremarkable. Bladder: Unremarkable. Pelvic Nodes: No enlarged lymph nodes. Miscellaneous: No hernias are seen. Bones: A 2.2 x 1.2 cm centrally lucent, peripherally sclerotic lesion is present within the left iliac bone (series 2/image 58). No other suspicious bony lesions. IMPRESSION: 1. Hepatic steatosis. 2. Mild wall thickening and pericolonic fat stranding of the right hemicolon suggesting a mild colitis. No obstruction, pneumatosis, or abscess. 3. The appendix is not visualized; however there are no discrete ancillary findings within the right lower quadrant to suggest acute appendicitis. 4. Lucent lesion within the left iliac bone which may represent a bone cyst. No prior studies are available for comparison. If asymptomatic, consider 1-3 month plain film follow-up to ensure stability of this finding and establish baseline if further follow-up is needed. Dictated by: Radha Messina M.D. on 07/15/2022 at 14:06 Approved by: Radha Messina M.D. on 07/15/2022 at 14:17
--- NOTE | 2022-07-15 13:27 | PC.NURSE ---
Has been throwing blood tinged emesis for the past four days. History of Gerd and stomach ulcers. Seen here two months ago for the same. Hasn't been able to follow up. Got a CT scan at [facility] 3 weeks ago and hasn't heard anything about it. Not taking prilosec or acid blockers since visit two months ago.
[2022-07-15] MEDS: ONDANSETRON 4 MG/2 ML INJ IV (13:31)
[2022-07-15] MEDS: SUCRALFATE 1 GM/10 ML ORAL SUSP PO (13:31)
[2022-07-15] MEDS: LIDOCAINE VISCOUS 2% 15 ML SOLUTION PO (13:31)
[2022-07-15] MEDS: HYDROMORPHONE 0.5 MG INJ IV (13:33)
[2022-07-15 13:54] LABS: Influenza A - CEPHEID Flu A NEGATIVE (NEGATIVE); Influenza B - CEPHEID Flu B NEGATIVE (NEGATIVE); Respiratory Syncytial Virus Negative (Negative)
[2022-07-15 13:56] LABS: COVID-19 CEPHEID 4-PLEX PCR Negative (Negative)
[2022-07-15 14:06] LABS: Lipase 69 U/L (23-300)
--- NOTE | 2022-07-15 14:27 | DI.US.S_ITS ---
PROCEDURE: US ABDOMEN LIMITED INDICATIONS: ELEVATED LIVER FUNCTION TESTS TECHNIQUE: Real-time scanning was performed of the abdominal and retroperitoneal organs, with image documentation. COMPARISON: [facility], , US ABDOMEN LIMITED, 05/14/2022, 13:23. FINDINGS: Liver: The liver measures 20.0 cm in length and demonstrates increased echogenicity. Gallbladder: The gallbladder wall measures 2.8 mm in diameter. Trace sludge may be present in the fundus. No stones, pericholecystic fluid, or sonographic Enriquez sign. Biliary ducts: The intra and extrahepatic biliary trees are not visualized given the coarse echotexture of the liver. Pancreas: Visualized portions of the pancreas are sonographically normal. Spleen: Spleen is normal in size and homogeneous in echotexture. IMPRESSION: 1. Increased hepatic echogenicity noted likely related to fatty infiltration of the liver but other sources of hepatocellular disease such as cirrhotic transformation cannot be excluded. 2. No cholelithiasis or findings to suggest choledocholithiasis or acute cholecystitis. Dictated by: Radha Messina M.D. on 07/15/2022 at 15:30 Approved by: Radha Messina M.D. on 07/15/2022 at 15:31
[2022-07-15] MEDS: AMOXICILLIN/CLAV 875/125 MG 1 TAB PO (14:47)
[2022-07-15 15:32] VITALS: BP 158/85; PULSE 65; RESP 14; O2SAT 100
[2022-07-15] MEDS: ACETAMINOPHEN 325 MG TABLET 975 MG PO (15:48)
== END 2022-07-15 16:02 | disposition home or self-care (01) ==
PROVIDERS: Emergency Medicine; Emergency Provider Nurse Practitioner Critical Care Medicine
DX: K52.9 Noninfective gastroenteritis and colitis, unspecified (principal); R10.13 Epigastric pain; K62.5 Hemorrhage of anus and rectum; K76.0 Fatty (change of) liver, not elsewhere classified; Z87.11 Personal history of peptic ulcer disease; Z20.822 Contact with and (suspected) exposure to COVID-19
CPT/HCPCS: 0241U; 36415; 74177; 76705; 80053; 83690; 85025; 85610; 85730; 96361; 96374; 96375; 99284; C9113; J1170; J2405; Q9967

== ENCOUNTER 2022-10-14 06:16 | Emergency (ER) | payer OTHER, SELFPAY ==
[2022-10-14] VITALS (15 sets, daily range): BP systolic 138–185; BP diastolic 84–108; PULSE 73–112; RESP 15–30; TEMP 36.6; O2SAT 95–100; BMI 24.3
--- NOTE | 2022-10-14 07:28 | ED_ITS ---
HPI - Abdominal Pain General Chief Complaint: Abdominal Pain Stated Complaint: vomiting blood/pressure in abd./headache Time Seen by Provider: 10/14/22 07:21 Source: patient Mode of arrival: Ambulatory Limitations: no limitations History of Present Illness HPI narrative: Patient has a history of ulcers since he was a young teenager. He is undergone more than 10 endoscopies. He is in the [employer]. He recently was scoped, and is currently on omeprazole for PUD. Symptoms minimized prior to joining the [employer] 2 years ago. Over the last 3 months symptoms of worsened with primarily increased abdominal pain. He is another scope pending in the next few weeks. Last night he developed severe epigastric abdominal pain, with nausea and vomiting. Pain radiates to his back. He has no hematemesis. He is no diarrhea. He is shaking, but has no fever chills. During the initial episode of emesis last night he developed severe bitemporal headache that persists. No visual changes, no confusion, no dysarthria. No focal numbness or weakness. He denies neck pain. He is no fever or chills. He is a nonsmoker. Alcohol consumption is minimal. Related Data Previous Rx's Medication Instructions Recorded ondansetron 4 mg disintegrating 4 mg PO Q8H PRN nausea and 05/14/22 tablet vomiting #30 tabs omeprazole 40 mg capsule,delayed 40 mg PO BID #90 caps 07/15/22 release ondansetron 4 mg disintegrating 4 mg PO Q8H PRN nausea and 07/15/22 tablet vomiting #30 tabs sucralfate 1 gram tablet (Carafate) 1 g PO BID PRN upper gi pain #60 07/15/22 tabs ondansetron 4 mg disintegrating 4 mg PO Q4-6H PRN nausea and 10/14/22 tablet vomiting #20 tabs Allergies Allergy/AdvReac Type Severity Reaction Status Date / Time No Known Drug Allergies Allergy Verified 07/15/22 11:08 Review of Systems Review of Systems ROS Unobtainable: All systems reviewed & are unremarkable except as noted in HPI and below Constitutional Constitutional: Reports as per HPI, Denies body ache(s), Denies chills, Denies fatigue, Denies fever(s) and Reports headache(s) Eyes Eyes: Denies change in vision ENT Ears, Nose, Mouth, and Throat: Denies vertigo, Denies dizziness, Reports headache(s), Denies neck pain and Denies sore throat Cardiovascular Cardiovascular: Denies chest pain, Denies syncope, Denies rapid heart rate and Denies dyspnea Respiratory Respiratory: Denies cough and Denies dyspnea Gastrointestinal Gastrointestinal: Reports as per HPI Genitourinary Genitourinary: Denies dysuria and Denies urinary frequency Musculoskeletal Musculoskeletal: Reports back pain, Denies muscle weakness, Denies neck pain and Denies numbness Integumentary/Breasts Skin/Breast: Denies lesions and Denies rash Neurologic Neurologic: Denies confusion, Denies vertigo, Denies dizziness, Denies syncope, Reports headache(s) and Denies numbness Psychiatric Psychiatric: Denies confusion Endocrine Endocrine: Denies fatigue Hematologic/Lymphatic On Anticoagulants: No Patient History Medical History (Updated 10/14/22 @ 12:13 by Kd Montemayor MD) Abnormal findings on esophagogastroduodenoscopy (EGD) PUD (peptic ulcer disease) Social History Smoking Status: Never smoker Smoking Status: Never smoker alcohol intake frequency: holidays/special occasions only Substance Use Type: does not use Exam Initial Vital Signs Initial Vital Signs: Vital Signs Pulse Rate 110 H 10/14/22 07:18 Pulse Oximetry 99 10/14/22 07:18 Const General: cooperative, anxious and other (Intermittent shaking.) Nutritional Appearance: average body habitus HENMT Head: normal to inspection, normocephalic and atraumatic Face and sinus: normal facial exam Mouth: oral mucosae normal Throat: posterior oropharynx normal Eyes General: Yes appearance normal, both eyes and all related structures Pupils: PERRL EOM: EOM intact bilaterally Neck Neck: full ROM, no meningeal signs and No lymphadenopathy Chest Chest: normal inspection of the chest Resp Auscultation: clear to auscultation bilaterally Cardio Rate: regular rate Rhythm: regular rhythm Heart Sounds: S1 normal and S2 normal GI Inspection: non-distended and other Palpation: guarding (Epigastric abdominal pain) and No mass Auscultation: normal bowel sounds Back/Spine/Pelvis Back: No CVA tenderness Skin General: no rashes or lesions noted Neuro General: patient alert, patient awake, patient oriented x3, no meningeal signs and no focal motor deficits Extrem General: normal to inspection, full ROM, no pedal edema and no calf tenderness Psych Mental Status: mental status grossly normal Course Course Course Narrative: CT reveals hepatic steatosis, and right colon colitis. Symptoms of dramatically improved after 2 L of IV fluids, Zofran, Protonix, and initially morphine. Headache resolved after Toradol was added to the treatment. Head CT is normal. Despite his history of PUD and GI issues, he appears to have an acute GI process with the colitis identified on CT. He is in the [employer]. He is given a note for 3 days off work. He is on omeprazole. I will discharge him on Zofran for nausea, with advice to drink an adequate amount of water and be on a bland diet until symptoms improve. Orders Ordered: ED Orders 10/14/22 07:30 Complete Blood Count AUTO DIFF Stat Comprehensive Metabolic Panel Stat Lactate (Lactic Acid) Stat Lipase Stat 10/14/22 07:34 CT abdomen pelvis w con Stat 10/14/22 07:36 CT head/brain wo con Stat 10/14/22 11:39 Urinalysis and Microscopic Stat Discontinued Medications Sodium Chloride (Normal Saline 0.9%) 1,000 mls @ 1,000 mls/hr IV BOLUS ONE Stop: 10/14/22 08:33 Last Infusion: 10/14/22 09:05 Dose: 0 mls/hr Documented By: Admin: 10/14/22 07:55 Dose: 1,000 mls/hr Documented By: SPF Sodium Chloride (Normal Saline 0.9%) 1,000 mls @ 1,000 mls/hr IV BOLUS ONE Stop: 10/14/22 10:46 Last Infusion: 10/14/22 11:02 Dose: 0 mls/hr Documented By: Admin: 10/14/22 10:09 Dose: 1,000 mls/hr Documented By: SPF Ketorolac Tromethamine (Ketorolac 30 Mg/Ml Vial) 30 mg IV NOW ONE Stop: 10/14/22 10:59 Last Admin: 10/14/22 11:16 Dose: 30 mg Documented By: SPF Morphine Sulfate (Morphine 4 Mg/Ml Inj) 4 mg IV NOW ONE Stop: 10/14/22 07:35 Last Admin: 10/14/22 07:55 Dose: 4 mg Documented By: SPF Ondansetron HCl (Ondansetron 4 Mg Odt) 4 mg PO NOW ONE Stop: 10/14/22 07:35 Last Admin: 10/14/22 07:55 Dose: 4 mg Documented By: SARIKA Pantoprazole Sodium (Pantoprazole 40 Mg Vial) 40 mg IV NOW ONE Stop: 10/14/22 07:35 Last Admin: 10/14/22 07:54 Dose: 40 mg Documented By: SARIKA Vital Signs Vital signs: Vital Signs - 8 hr 10/14/22 07:27 10/14/22 07:18 10/14/22 07:30 Temperature 97.8 F Pulse Rate 112 H 110 H Respiratory Rate 20 Blood Pressure 185/91 H 165/97 H Pulse Oximetry 98 99 Oxygen Delivery Method Room Air 10/14/22 07:30 10/14/22 08:00 10/14/22 08:13 Temperature Pulse Rate 107 H 101 H 95 H Respiratory Rate 21 18 Blood Pressure Pulse Oximetry 99 100 95 Oxygen Delivery Method Room Air 10/14/22 08:13 10/14/22 08:30 10/14/22 08:30 Temperature Pulse Rate 92 H Respiratory Rate 30 H Blood Pressure 143/88 H 151/108 H Pulse Oximetry 98 Oxygen Delivery Method 10/14/22 09:00 10/14/22 09:00 10/14/22 09:30 Temperature Pulse Rate 95 H Respiratory Rate 28 H Blood Pressure 150/84 H 149/96 H Pulse Oximetry 97 Oxygen Delivery Method 10/14/22 09:30 10/14/22 10:00 10/14/22 10:00 Temperature Pulse Rate 87 80 Respiratory Rate 21 22 Blood Pressure 148/84 H Pulse Oximetry 97 96 Oxygen Delivery Method 10/14/22 10:30 10/14/22 10:30 10/14/22 11:00 Temperature Pulse Rate 88 106 H Respiratory Rate 24 Blood Pressure 138/86 Pulse Oximetry 99 100 Oxygen Delivery Method 10/14/22 11:01 10/14/22 11:01 10/14/22 11:41 Temperature Pulse Rate 97 H Respiratory Rate 23 Blood Pressure 164/87 H 151/89 H Pulse Oximetry 100 Oxygen Delivery Method Room Air 10/14/22 11:41 Temperature Pulse Rate 85 Respiratory Rate Blood Pressure Pulse Oximetry 99 Oxygen Delivery Method Room Air MDM - Abdominal Pain Lab Data 10/14/22 07:30 10/14/22 07:30 Labs: Lab Results 10/14/22 10/14/22 10/14/22 Range/Units 07:30 07:30 07:30 WBC 14.2 H (4.5-11.0) X10^3/uL RBC 4.83 (4.5-5.9) X10^6/uL Hgb 16.0 (13.5-17.5) g/dL Hct 46.5 (41-53) % MCV 96.2 (80-100) fL MCH 33.0 (26-34) PG MCHC 34.4 (30-36) % RDW 13.5 (11.6-14.8) % Plt Count 277 (150-400) X10^3/uL Neut % (Auto) 85.9 H (50-75) % Lymph % (Auto) 4.9 L (25-40) % [place] % (Auto) 8.8 (3-14) % Eos % (Auto) 0.2 L (2-4) % Baso % (Auto) 0.2 (0-2) % Neut # (Auto) 50160 H (0099-2072) /uL Lymph # (Auto) 700 L (2037-5781) /uL [place] # (Auto) 1200 H (0-900) /uL Eos # (Auto) 0 (0-450) /uL Baso # (Auto) 0 (0-100) /uL Sodium 135 L (137-145) mmol/L Potassium 4.3 (3.4-5.1) mmol/L Chloride 95 L (98-107) mmol/L Carbon Dioxide 20 L (22-32) mmol/L BUN 11 (9-20) mg/dL Creatinine 0.88 (0.66-1.25) mg/dL Estimated GFR > 60 (>60) mL/min BUN/Creatinine Ratio 12.5 (6-22) Glucose 82 (70-100) mg/dL Lactate 3.0 H (0.7-2.1) mmol/L Calcium 9.5 (8.4-10.2) mg/dL Total Bilirubin 3.0 H (0.2-1.3) mg/dL AST 1653 H (17-59) IU/L ALT 204 H (<50) IU/L Alkaline Phosphatase 192 H (38-126) U/L Total Protein 8.5 H (6.3-8.2) g/dL Albumin 5.0 (3.5-5.0) g/dL Globulin 3.5 (1.7-4.1) g/dL Albumin/Globulin Ratio 1.4 (1.0-2.8) Lipase 280 (23-300) U/L 10/14/22 Range/Units 09:53 WBC (4.5-11.0) X10^3/uL RBC (4.5-5.9) X10^6/uL Hgb (13.5-17.5) g/dL Hct (41-53) % MCV (80-100) fL MCH (26-34) PG MCHC (30-36) % RDW (11.6-14.8) % Plt Count (150-400) X10^3/uL Neut % (Auto) (50-75) % Lymph % (Auto) (25-40) % [place] % (Auto) (3-14) % Eos % (Auto) (2-4) % Baso % (Auto) (0-2) % Neut # (Auto) (4155-3534) /uL Lymph # (Auto) (0877-8738) /uL [place] # (Auto) (0-900) /uL Eos # (Auto) (0-450) /uL Baso # (Auto) (0-100) /uL Sodium (137-145) mmol/L Potassium (3.4-5.1) mmol/L Chloride (98-107) mmol/L Carbon Dioxide (22-32) mmol/L BUN (9-20) mg/dL Creatinine (0.66-1.25) mg/dL Estimated GFR (>60) mL/min BUN/Creatinine Ratio (6-22) Glucose (70-100) mg/dL Lactate 1.4 (0.7-2.1) mmol/L Calcium (8.4-10.2) mg/dL Total Bilirubin (0.2-1.3) mg/dL AST (17-59) IU/L ALT (<50) IU/L Alkaline Phosphatase (38-126) U/L Total Protein (6.3-8.2) g/dL Albumin (3.5-5.0) g/dL Globulin (1.7-4.1) g/dL Albumin/Globulin Ratio (1.0-2.8) Lipase (23-300) U/L Point of care testing: Urine Dip Bedside Urine Glucose Negative Bedside Urine Bilirubin - Negative Bedside Urine Ketone +++ 80 Urine Specific Glady 1.015 Bedside Urine Occult Blood - Negative Bedside Urine pH 6.0 Bedside Urine Protein - Negative Bedside Urine Urobilinogen - Negative Bedside Urine Nitrite - Negative Bedside Urine Leukocytes - Negative Esterase Imaging Data CT scan - head: Radiologist's Impression: Normal CT scan - abdomen/pelvis: Radiologist's Impression: 1. Ascending colon again appears thickened.? Possible right colon colitis. ? 2. No free fluid.? No bowel obstruction.? No peripancreatic fluid collection. ? 3. No appendicitis. ? 4. Hepatic steatosis. Discharge Plan Departure Patient Disposition: Home Clinical Impression: Colitis Instructions: DI for Colitis Activity Restrictions/Additional Instructions: continue your current medications. Zofran every 4 hours for nausea. You should be on a bland diet. Be sure you are drinking plenty of water. Symptoms should resolve in the next 2-3 days, return here if necessary. Prescriptions: New ondansetron 4 mg tablet,disintegrating 4 mg PO Q4-6H PRN (Reason: nausea and vomiting) Qty: 20 0RF No Action ondansetron 4 mg tablet,disintegrating 4 mg PO Q8H PRN (Reason: nausea and vomiting) Qty: 30 0RF sucralfate [Carafate] 1 gram tablet 1 g PO BID PRN (Reason: upper gi pain) Qty: 60 4RF omeprazole 40 mg capsule,delayed release(DR/EC) 40 mg PO BID Qty: 90 5RF Rx Instructions: Take 40 mg twice a day for the 1st week to 2 weeks and then 40 mg daily thereafter ondansetron 4 mg tablet,disintegrating 4 mg PO Q8H PRN (Reason: nausea and vomiting) Qty: 30 0RF Referrals: ProviderJoelle [Primary Care Provider] - Stand Alone Forms: Patient Portal/API, Work Release Note
--- NOTE | 2022-10-14 07:34 | DI.CT.S_ITS ---
PROCEDURE: CT ABDOMEN PELVIS W CON INDICATIONS: Epigastric pain radiating to his back TECHNIQUE: After the administration of oral and IV contrast, axial sections were acquired from the lung bases to the pubic symphysis. Coronal and sagittal reformats were performed. For radiation dose reduction, the following was used: automated exposure control, adjustment of mA and/or kV according to patient size. COMPARISON: [facility], CT, CT ABDOMEN PELVIS W [facility], 07/15/2022, 13:34. FINDINGS: Image quality: Excellent. Lung bases: Unremarkable. Heart: No significant findings. ABDOMEN: Liver: Hepatic steatosis. No focal lesion. Gallbladder: Within normal limits. Biliary ducts: Unremarkable. Pancreas: No peripancreatic fluid collection. Spleen: Unremarkable. Adrenal Glands: Unremarkable. Kidneys and Ureters: No hydronephrosis. Stomach and Bowel: Stomach is not distended. No small bowel obstruction. No significant diverticulosis. The appendix is not dilated. The ascending colon is again decompressed with possible wall thickening. Mesenteric vasculature is somewhat prominent. Peritoneum: No pneumoperitoneum. No ascites. Ventral Wall: No hernia. Abdominal Nodes: No retroperitoneal or mesenteric adenopathy by size criteria. Vessels: Aorta and inferior vena cava are normal in size. No aortic dissection. No portal venous gas. PELVIS: Pelvic Organs: Unremarkable. Bladder: Decompressed. Pelvic Nodes: No enlarged lymph nodes. Miscellaneous: No inguinal hernias are seen. Bones: Left iliac lucency is unchanged. No aggressive appearing lesion. IMPRESSION: 1. Ascending colon again appears thickened. Possible right colon colitis. 2. No free fluid. No bowel obstruction. No peripancreatic fluid collection. 3. No appendicitis. 4. Hepatic steatosis. Dictated by: Panchito Stubbs M.D. on 10/14/2022 at 8:02 Approved by: Panchito Stubbs M.D. on 10/14/2022 at 8:19
--- NOTE | 2022-10-14 07:36 | DI.CT.S_ITS ---
PROCEDURE: CT HEAD/BRAIN WO CON INDICATIONS: Severe headache TECHNIQUE: Noncontrast 4.5 mm thick angled axial sections acquired from the foramen magnum to the vertex, with coronal and sagittal reformats. For radiation dose reduction, the following was used: automated exposure control, adjustment of mA and/or kV according to patient size. COMPARISON: None. FINDINGS: Image quality: Excellent. CSF spaces: Basal cisterns are patent. No extra-axial fluid collections. Ventricles are normal in size and shape. Brain: No midline shift. No intracranial masses or hemorrhage. Romano-white matter interface is normal. Skull and face: Calvarium and visualized facial bones are intact, without suspicious lesions. Sinuses: Visualized sinuses and mastoids are clear. IMPRESSION: No evidence acute intracranial process. Dictated by: Rory Parks M.D. on 10/14/2022 at 8:02 Approved by: Rory Parks M.D. on 10/14/2022 at 8:04
[2022-10-14 07:42] LABS: Add Manual Diff / Slide Review NO; Basophils Absolute Auto 0 /uL (0-100); Basophils Percent Auto 0.2 % (0-2); Eosinophils Absolute Auto 0 /uL (0-450); Eosinophils Percent Auto 0.2 % (2-4); Hematocrit 46.5 % (41-53); Lymphocytes Absolute Auto 700 /uL (1100-4500); Lymphocytes Percent Auto 4.9 % (25-40); Mean Corpuscular HGB Conc 34.4 % (30-36); Mean Corpuscular Volume 96.2 fL (80-100); Monocytes Absolute Auto 1200 /uL (0-900); Monocytes Percent Auto 8.8 % (3-14); Neutrophils Absolute Auto 12200 /uL (1500-7000); Neutrophils Percent Auto 85.9 % (50-75); Platelet Count 277 X10^3/uL (150-400); Red Blood Cell Count 4.83 X10^6/uL (4.5-5.9); Red Cell Distribution Width 13.5 % (11.6-14.8); White Blood Cell Count 14.2 X10^3/uL (4.5-11.0)
[2022-10-14] MEDS: PANTOPRAZOLE 40 MG VIAL IV (07:54)
[2022-10-14 07:55] LABS: Alanine Aminotransferase 204 IU/L (<50); Albumin Globulin Ratio 1.4 (1.0-2.8); Alkaline Phosphatase 192 U/L (38-126); BUN Creatinine Ratio 12.5 (6-22); Blood Urea Nitrogen 11 mg/dL (9-20); Calcium 9.5 mg/dL (8.4-10.2); Carbon Dioxide 20 mmol/L (22-32); Chloride 95 mmol/L (98-107); Estimated Glomerular Filt Rate > 60 mL/min (>60); Globulin 3.5 g/dL (1.7-4.1); Glucose 82 mg/dL (70-100); HEMOLYSIS < 15 (0-50); Lipase 280 U/L (23-300); Potassium 4.3 mmol/L (3.4-5.1); Sodium 135 mmol/L (137-145); Total Protein 8.5 g/dL (6.3-8.2)
[2022-10-14] MEDS: SODIUM CHLORIDE 0.9% 1,000 ML 1000 ML IV ×2 (07:55→10:09)
[2022-10-14] MEDS: MORPHINE 4 MG/ML INJ IV (07:55)
[2022-10-14] MEDS: ONDANSETRON 4 MG ODT PO (07:55)
[2022-10-14 08:12] LABS: Aspartate Aminotransferase 1653 IU/L (17-59)
[2022-10-14 09:39] LABS: Reflexed Lactate in 2 Hours Y
[2022-10-14 10:12] LABS: Lactate 2HR (Lactic Acid Rflx) 1.4 mmol/L (0.7-2.1)
[2022-10-14] MEDS: KETOROLAC 30 MG/ML VIAL IV (11:16)
[2022-10-14 12:15] LABS: Appearance Urine UA CLEAR; Bilirubin Urine UA NEGATIVE (NEGATIVE); Color Urine UA YELLOW; Glucose Urine UA NEGATIVE (Negative); Ketones Urine UA 3+ (NEGATIVE); Leukocyte Esterase Urine UA NEGATIVE (NEGATIVE); Nitrite Urine UA NEGATIVE (Negative); Occult Blood Urine UA NEGATIVE (Negative); Protein Urine UA NEGATIVE (Negative); Specific Gravity Urine UA 1.015 (1.000-1.035); Urobilinogen Urine UA 0.2 E.U./dL (0.2)
[2022-10-14 12:22] LABS: Bacteria Urine None Seen; Culture Indicated Urine Cult Not Indicated; RBC Urine None Seen (0-5/HPF); Squamous Epithelial Cell Urine 0-1 /HPF (0-5/HPF); WBC Urine None Seen (0-5/HPF)
== END 2022-10-14 12:38 | disposition home or self-care (01) ==
PROVIDERS: Emergency Provider Emergency Medicine
DX: K52.9 Noninfective gastroenteritis and colitis, unspecified (principal); R11.2 Nausea with vomiting, unspecified
CPT/HCPCS: 36415; 70450; 74177; 80053; 81001; 81003; 83605; 83690; 85025; 96361; 96374; 96375; 99284; C9113; J1885; J2270; Q9967

== ENCOUNTER 2024-01-11 11:18 | Emergency (ER) | payer OTHER, SELFPAY ==
[2024-01-11 11:36] VITALS: BP 150/98; PULSE 91; RESP 16; TEMP 36.5; O2SAT 97; BMI 23.6
--- NOTE | 2024-01-11 11:40 | DI.RAD.S_ITS ---
PROCEDURE: XR HAND RT MIN 3V INDICATIONS: right hand injury swelling and bruising TECHNIQUE: 3 views of the hand(s) acquired. COMPARISON: None. FINDINGS: Bones: No fractures or dislocations. Carpal bones are normally aligned. No suspicious bony lesions. Soft tissues: No suspicious soft tissue calcifications. IMPRESSION: No acute bony abnormality. Dictated by: Anders Yarbrough M.D. on 01/11/2024 at 12:17 Approved by: Anders Yarbrough M.D. on 01/11/2024 at 12:18
--- NOTE | 2024-01-11 15:26 | ED_ITS ---
HPI - Extremity Injury (Upper) <Mayi Steward PA-C - Last Filed: 01/11/24 17:26> General Chief Complaint: Extremity Injury, Upper Stated Complaint: R hand fracture/injury Time Seen by Provider: 01/11/24 13:18 Source: patient Mode of arrival: Ambulatory History of Present Illness HPI narrative: This is a 23-year-old male who is [employer] who presents with concern for right hand injury. Patient states he hit a brick wall with his hand last night at 4:00 a.m. he states he did not punch the wall but he did feeling his arm outward into the side and it hit the wall hard largely impacting the knuckle of his hand at the base of his middle finger. [place] for further evaluation and recommended he get x- rays and see Orthopedics. He states it has been painful but he has not tried icing Tylenol or ibuprofen. His range of motion is reduced 2nd to swelling and pain. He does feel he can move his fingers and his wrist normally he denies maile n in his forearm wrist or elbow. Denies numbness or tingling. Related Data Previous Rx's Medication Instructions Recorded ondansetron 4 mg disintegrating 4 mg PO Q8H PRN nausea and 05/14/22 tablet vomiting #30 tabs omeprazole 40 mg capsule,delayed 40 mg PO BID #90 caps 07/15/22 release ondansetron 4 mg disintegrating 4 mg PO Q8H PRN nausea and 07/15/22 tablet vomiting #30 tabs sucralfate 1 gram tablet (Carafate) 1 g PO BID PRN upper gi pain #60 07/15/22 tabs ondansetron 4 mg disintegrating 4 mg PO Q4-6H PRN nausea and 10/14/22 tablet vomiting #20 tabs Allergies Allergy/AdvReac Type Severity Reaction Status Date / Time No Known Drug Allergies Allergy Verified 01/11/24 11:39 Review of Systems <Mayi Steward PA-C - Last Filed: 01/11/24 17:26> Review of Systems Narrative: See HPI Patient History <SHEREE Hollis Last Filed: 01/11/24 17:26> Medical History Abnormal findings on esophagogastroduodenoscopy (EGD) PUD (peptic ulcer disease) Social History Smoking Status: Never smoker Smoking Status: Never smoker alcohol intake frequency: holidays/special occasions only Substance Use Type: does not use Exam <Mayi Steward PA-C - Last Filed: 01/11/24 17:26> Narrative Exam Narrative: GENERAL: [23] year old patient appears stated age. Well-developed patient, in mild distress. HEAD: Atraumatic. Normocephalic. EYES: Pupils equal round and reactive. Extraocular motions intact. No scleral icterus. No injection or drainage. ENT: Nose without bleeding, purulent drainage. Airway patent. NECK: Trachea midline. CARDIOVASCULAR: Regular rate and rhythm without murmurs, gallops, or rubs. RESPIRATORY: No increased work of breathing or respiratory distress EXTREMITIES: There is pronounced swelling with mild erythema and bruising forming over the middle finger MCP. Range of motion of this digit is reduced secondary to pain and swelling with flexion and extension. Strength is slightly reduced with flexion and extension. Patient also has some tenderness over the 5th MCP with range of motion intact. The remainder of the digits have ROM intact and strength intact. Programming Coordinator is reduced on the right 2nd to pain and swelling. Patient has normal flexion and extension at the wrist with no difficulty performing supination and pronation and these movements are pain- free. No wrist, forearm or elbow tenderness. No other edema or joint tenderness. NEURO: AOx3. SKIN: No rash or erythema of visible areas Initial Vital Signs Initial Vital Signs: Vital Signs Temperature 97.7 F 01/11/24 11:36 Pulse Rate 91 H 01/11/24 11:36 Respiratory Rate 16 01/11/24 11:36 Blood Pressure 150/98 H 01/11/24 11:36 Pulse Oximetry 97 01/11/24 11:36 Oxygen Delivery Method Room Air 01/11/24 11:36 <Ivy Massey MD - Last Filed: 01/11/24 18:39> Initial Vital Signs Initial Vital Signs: Vital Signs Temperature 97.7 F 01/11/24 11:36 Pulse Rate 91 H 01/11/24 11:36 Respiratory Rate 16 01/11/24 11:36 Blood Pressure 150/98 H 01/11/24 11:36 Pulse Oximetry 97 01/11/24 11:36 Oxygen Delivery Method Room Air 01/11/24 11:36 Course <Mayi Steward PA-C - Last Filed: 01/11/24 17:26> Orders Ordered: ED Orders 01/11/24 11:40 XR hand RT min 3V Stat Vital Signs Vital signs: Vital Signs - 8 hr 01/11/24 11:36 Temperature 97.7 F Pulse Rate 91 H Respiratory Rate 16 Blood Pressure 150/98 H Pulse Oximetry 97 Oxygen Delivery Method Room Air <Ivy Massey MD - Last Filed: 01/11/24 18:39> Orders Ordered: ED Orders 01/11/24 11:40 XR hand RT min 3V Stat Vital Signs Vital signs: Vital Signs - 8 hr 01/11/24 11:36 Temperature 97.7 F Pulse Rate 91 H Respiratory Rate 16 Blood Pressure 150/98 H Pulse Oximetry 97 Oxygen Delivery Method Room Air MDM - Extremity Injury (Upper) <Mayi Steward PA-C - Last Filed: 01/11/24 17:26> Differential Diagnosis Differential diagnosis: Likely other (hand sprain) Medical Records Attestation: I reviewed the patient's medical records. Imaging Data Extremity x-ray #1: My Impression: Agree with Radiology interpretation Radiologist's Impression: [place] [address] XRay Report Signed Patient: Kervin Castillo MR#: [id number] : 2000 Acct:[id number] Age/Sex: 23 / M Date of Service: 01/11/24 Loc: ED Accession Number: [id number] Procedure: XR hand RT min 3V Ordering Provider: Ivy Massey MD PROCEDURE: XR HAND RT MIN 3V INDICATIONS: right hand injury swelling and bruising TECHNIQUE: 3 views of the hand(s) acquired. COMPARISON: None. FINDINGS: Bones: No fractures or dislocations. Carpal bones are normally aligned. No suspicious bony lesions. Soft tissues: No suspicious soft tissue calcifications. IMPRESSION: No acute bony abnormality. Dictated by: Anders Yarbrough M.D. on 01/11/2024 at 12:17 Approved by: Anders Yarbrough M.D. on 01/11/2024 at 12:18 MDM Narrative Medical decision making narrative: This is a well-appearing generally healthy 23-year-old male presenting with concern for right hand pain after flinging has hand into a brick wall last night at 4:00 a.m.. Patient does have significant swelling over the middle finger MCP with tenderness and reduced range of motion however he has a normal x-ray today without evidence of fracture, this appears to be a sprain/soft tissue injury, I do have some concern for involvement of the extensor tendon of the 3rd digit given his reduced range of motion and significant swelling. He is placed in a Orthoglass splint today for protection and advised light duty until ortho follow-up, sling provided today as well. He declines Tylenol, ibuprofen or Toradol today. Return precautions provided, follow-up plan discussed, all questions answered. Discharge Plan Departure Patient Disposition: Home Clinical Impression: Sprain and strain of right hand Prescriptions: No Action ondansetron 4 mg tablet,disintegrating 4 mg PO Q8H PRN (Reason: nausea and vomiting) Qty: 30 0RF sucralfate [Carafate] 1 gram tablet 1 g PO BID PRN (Reason: upper gi pain) Qty: 60 4RF omeprazole 40 mg capsule,delayed release(DR/EC) 40 mg PO BID Qty: 90 5RF Rx Instructions: Take 40 mg twice a day for the 1st week to 2 weeks and then 40 mg daily thereafter ondansetron 4 mg tablet,disintegrating 4 mg PO Q8H PRN (Reason: nausea and vomiting) Qty: 30 0RF ondansetron 4 mg tablet,disintegrating 4 mg PO Q4-6H PRN (Reason: nausea and vomiting) Qty: 20 0RF Referrals: Provider,Joelle CAGLE [Primary Care Provider] - Stand Alone Forms: Patient Portal/API ED Sign-out <Ivy Massey MD - Last Filed: 01/11/24 18:39> Cosign ED Attending Cosignature Attestation: I was immediately available in the department for consultation throughout this patient's visit. Ivy Massey MD
== END 2024-01-11 16:46 | disposition home or self-care (01) ==
PROVIDERS: Emergency Provider Student in an Organized Health Care Education/Training Program
DX: S63.91XA Sprain of unspecified part of right wrist and hand, initial encounter (principal); S66.911A Strain of unspecified muscle, fascia and tendon at wrist and hand level, right hand, initial encounter; W22.01XA Walked into wall, initial encounter
CPT/HCPCS: 29125; 73130; 99283

== ENCOUNTER 2024-04-11 15:02 | Inpatient (IN) | payer OTHER, SELFPAY ==
[2024-04-11] VITALS (22 sets, daily range): BP systolic 128–164; BP diastolic 78–103; PULSE 66–115; RESP 13–30; TEMP 36.3–37.3; O2SAT 94–100; BMI 22.2
--- NOTE | 2024-04-11 15:20 | EKG_ITS ---
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
--- NOTE | 2024-04-11 15:30 | PC.NURSE ---
LUIS reported to provider.
--- NOTE | 2024-04-11 15:31 | ED.SEIZURE ---
HPI - Seizure General Chief Complaint: Seizure Stated Complaint: Seizure,Possible ETOH withdrawal Time Seen by Provider: 04/11/24 15:31 Source: patient and EMS Mode of arrival: EMS Limitations: no limitations History of Present Illness HPI Narrative: Patient with past medical history of alcohol abuse but no withdrawal seizures comes into the ED via EMS for evaluation of alcohol withdrawal. Patient states that he has been drinking a handle to have a handle of vodka daily for the past 6 years, states that he stopped drinking last night, states he has had history of alcohol withdrawal but no seizures in the past. Julissa at bedside states that she is the 1 who witnessed seizures 45 minutes prior to arrival, states that lasted no more than 3 minutes. Was postictal. Patient currently just complaining of diffuse weakness at this time. Currently he states that he is seeing and hearing things, states that he sees monsters, states that he hears them speaking to him. But denies any SI HI denies any demanding sounds or thoughts. Not on any blood thinners no other symptoms at this time. Related Data Previous Rx's Medication Instructions Recorded ondansetron 4 mg disintegrating 4 mg PO Q8H PRN nausea and 05/14/22 tablet vomiting #30 tabs omeprazole 40 mg capsule,delayed 40 mg PO BID #90 caps 07/15/22 release ondansetron 4 mg disintegrating 4 mg PO Q8H PRN nausea and 07/15/22 tablet vomiting #30 tabs sucralfate 1 gram tablet (Carafate) 1 g PO BID PRN upper gi pain #60 07/15/22 tabs ondansetron 4 mg disintegrating 4 mg PO Q4-6H PRN nausea and 10/14/22 tablet vomiting #20 tabs Allergies Allergy/AdvReac Type Severity Reaction Status Date / Time No Known Drug Allergies Allergy Verified 04/11/24 15:28 Review of Systems Review of Systems Narrative: HEENT: Denies headache, eye drainage, eye irritation, head trauma, sore throat, voice change Cardiovascular: Denies any chest pain, palpitations, shortness of breath, tachycardia Respiratory: Denies any shortness of breath, cough, wheeze, stridor GI/: Denies any abdominal pain, nausea, vomiting, diarrhea, bright red blood per rectum, melanotic stools, urinary frequency, urinary retention, dysuria, hematuria MSK: Denies any joint pain, muscle pains, swelling Skin: Denies any rashes, lesions, discoloration Neuro: Positive for seizures Psych: Denies SI/HI Patient History Medical History Abnormal findings on esophagogastroduodenoscopy (EGD) PUD (peptic ulcer disease) Social History Smoking Status: Never smoker Smoking Status: Never smoker alcohol intake frequency: holidays/special occasions only Substance Use Type: does not use Exam Narrative Exam Narrative: General: Cooperative, comfortable, well-developed, not in acute distress HEENT: Normocephalic, atraumatic, PERRLA, normal sclera, eyelids normal, Neck: Active full range of motion, atraumatic Chest: Normal to inspection, negative crepitus, no overlying erythema ecchymosis Respiratory: Normal respiratory effort, not in acute respiratory distress, clear to auscultation bilaterally negative cough, wheeze, tachypnea, rhonchi, rales Cardiology: Regular rate rhythm negative gallop, murmur, rubs GI/: Normal to inspection, soft, nonrigid, no tenderness to palpation, exam deferred MSK: Full range of active range of motion of all 4 extremities, atraumatic Skin: No rashes lesions noted Neuro: Alert awake oriented x3, moves all 4 extremities spontaneously, cranial nerves intact, able to answer all questions appropriately follows commands appropriately, no focal deficits NIH of 0 Psych: Cooperative, negative suicidal or homicidal ideations Initial Vital Signs Initial Vital Signs: Vital Signs Pulse Rate 107 H 04/11/24 15:22 Respiratory Rate 24 04/11/24 15:22 Pulse Oximetry 97 04/11/24 15:22 Course Orders Ordered: ED Orders 04/11/24 15:15 CBC Auto Diff [Complete Blood Count AUTO DIFF] Stat CMP [Comprehensive Metabolic Panel] Stat ETOH [Ethanol (ETOH)] Stat Lactate (Lactic Acid) Stat MAG [Magnesium] Stat 04/11/24 15:51 CT head/brain wo con Stat 04/11/24 15:54 Consult to Dietitian, Adult Routine 04/11/24 16:40 Prothrombin Time INR Stat dexmedeTOMIDine in 0.9 % NaCL (Precedex) 400 mcg in 100 mls @ 3.515 mls/hr IV TITRATE LILIA; Protocol Discontinued Medications Folic Acid (Folic Acid 1 Mg Tablet) 1 mg PO NOW ONE Stop: 04/11/24 15:55 Last Admin: 04/11/24 16:18 Dose: 1 mg Documented By: GUILHERME Lorazepam (Lorazepam 2 Mg/Ml Inj) 1 mg IV NOW ONE Stop: 04/11/24 15:32 Last Admin: 04/11/24 15:39 Dose: 1 mg Documented By: GUILHERME Multivitamins (Multivitamin 1 Tablet) 1 tab PO NOW ONE Stop: 04/11/24 15:56 Last Admin: 04/11/24 16:17 Dose: 1 tab Documented By: GUILHERME Phenobarbital (Phenobarbital 65 Mg/Ml Vial) 130 mg IV NOW ONE Stop: 04/11/24 15:53 Last Admin: 04/11/24 16:18 Dose: 130 mg Documented By: GUILHERME Thiamine HCl (Thiamine 100 Mg Tablet) 100 mg PO NOW ONE Stop: 04/11/24 15:55 Last Admin: 04/11/24 16:17 Dose: 100 mg Documented By: GUILHERME Vital Signs Vital signs: Vital Signs - 8 hr 04/11/24 15:22 04/11/24 15:24 04/11/24 15:30 Temperature 98.3 F Pulse Rate 107 H 115 H 99 H Respiratory Rate 24 26 H 22 Blood Pressure 164/103 H Pulse Oximetry 97 98 94 Oxygen Delivery Method Room Air 04/11/24 15:56 04/11/24 15:56 04/11/24 16:06 Temperature Pulse Rate 95 H 80 Respiratory Rate 24 Blood Pressure 139/89 Pulse Oximetry 96 97 Oxygen Delivery Method MDM - Seizure Differential Diagnosis Differential diagnosis: Likely generalized seizure, new onset seizure and other (Alcohol abuse, alcohol withdrawal seizures, alcohol withdrawal) Lab Data 04/11/24 15:15 04/11/24 15:15 Labs: Lab Results 04/11/24 Range/Units 15:15 WBC 5.8 (4.5-11.0) X10^3/uL RBC 4.28 L (4.5-5.9) X10^6/uL Hgb 14.2 (13.5-17.5) g/dL Hct 42.4 (41-53) % MCV 98.9 (80-100) fL MCH 33.2 (26-34) PG MCHC 33.5 (30-36) % RDW 15.3 H (11.6-14.8) % Plt Count 134 L (150-400) X10^3/uL Neut % (Auto) 72.2 (50-75) % Lymph % (Auto) 14.4 L (25-40) % Payne % (Auto) 10.1 (3-14) % Eos % (Auto) 2.0 (2-4) % Baso % (Auto) 1.3 (0-2) % Neut # (Auto) 4200 (8153-7215) /uL Lymph # (Auto) 800 L (6219-7331) /uL Payne # (Auto) 600 (0-900) /uL Eos # (Auto) 100 (0-450) /uL Baso # (Auto) 100 (0-100) /uL Sodium 134 L (137-145) mmol/L Potassium 3.7 (3.4-5.1) mmol/L Chloride 99 (98-107) mmol/L Carbon Dioxide 15 L (22-32) mmol/L BUN 6 L (9-20) mg/dL Creatinine 0.91 (0.66-1.25) mg/dL Estimated GFR > 60 (>60) mL/min BUN/Creatinine Ratio 6.6 (6-22) Glucose 169 H (70-100) mg/dL Lactate 9.3 H* (0.7-2.1) mmol/L Calcium 9.8 (8.4-10.2) mg/dL Magnesium 1.9 (1.6-2.3) mg/dL Total Bilirubin 2.4 H (0.2-1.3) mg/dL AST 364 H (17-59) IU/L ALT 198 H (<50) IU/L Alkaline Phosphatase 129 H (38-126) U/L Total Protein 7.8 (6.3-8.2) g/dL Albumin 5.0 (3.5-5.0) g/dL Globulin 2.8 (1.7-4.1) g/dL Albumin/Globulin Ratio 1.8 (1.0-2.8) Ethyl Alcohol < 10 ( - 10) mg/dL Imaging Data CT scan - head: Radiologist's Impression: [address] [address] [address] Scan Report Signed Patient: Kervin Castillo MR#: [id number] : 2000 Acct:[id number] Age/Sex: 24 / M Date of Service: 04/11/24 Loc: ED Accession Number: [id number] Procedure: CT head/brain wo con Ordering Provider: Humberto Quevedo D.O. PROCEDURE: CT HEAD/BRAIN WO CON INDICATIONS: New onset seizure TECHNIQUE: Noncontrast 4.5 mm thick angled axial sections acquired from the foramen magnum to the vertex, with coronal and sagittal reformats. For radiation dose reduction, the following was used: automated exposure control, adjustment of mA and/or kV according to patient size. COMPARISON: [facility], CT, CT HEAD/BRAIN WO CON, 10/14/2022, 7:45. FINDINGS: Image quality: Diagnostic. CSF spaces: Basal cisterns are patent. No extra-axial fluid collections. Ventricles are normal in size and shape. Brain: No midline shift. No intracranial masses or hemorrhage. Romano-white matter interface is normal. Skull and face: Calvarium and visualized facial bones are intact, without suspicious lesions. Sinuses: Visualized sinuses and mastoids are clear. IMPRESSION: No acute intracranial pathology. ECG Data Attestation: I personally reviewed and interpreted this ECG as follows: Interpretation: EKG interpreted ED physician sinus tachycardia at 108 beats per minute, QTC 458, normal axis, nonspecific ST changes, no STEMI MDM Narrative Medical decision making narrative: Patient is a 24-year-old male history of alcohol abuse presents for first-time alcohol withdrawal seizures. Patient is complaining of visual and auditory hallucinations. But denies any demanding hallucinations Patient with initial CIWA score of 28. Ativan and phenobarb ordered initially. Lab work with elevated lactate consistent with seizure. CT head negative for any acute findings, given patient with new onset alcohol withdrawal seizure patient will require admission. Discussed case with Dr. Vera, accepts admission, recommending INR as well as Precedex drip. Discharge Plan Departure Patient Disposition: Admitted As Inpatient Clinical Impression: Alcohol withdrawal seizure Admit Date/Time: 04/11/24 16:43 Admit Provider: Humberto Vazquez
[2024-04-11] MEDS: LORazepam 2 MG/ML INJ 1 MG IV (15:39)
--- NOTE | 2024-04-11 15:51 | DI.CT.S_ITS ---
PROCEDURE: CT HEAD/BRAIN WO CON INDICATIONS: New onset seizure TECHNIQUE: Noncontrast 4.5 mm thick angled axial sections acquired from the foramen magnum to the vertex, with coronal and sagittal reformats. For radiation dose reduction, the following was used: automated exposure control, adjustment of mA and/or kV according to patient size. COMPARISON: [facility], CT, CT HEAD/BRAIN WO CON, 10/14/2022, 7:45. FINDINGS: Image quality: Diagnostic. CSF spaces: Basal cisterns are patent. No extra-axial fluid collections. Ventricles are normal in size and shape. Brain: No midline shift. No intracranial masses or hemorrhage. Romano-white matter interface is normal. Skull and face: Calvarium and visualized facial bones are intact, without suspicious lesions. Sinuses: Visualized sinuses and mastoids are clear. IMPRESSION: No acute intracranial pathology. Dictated by: Anders Yarbrough M.D. on 04/11/2024 at 16:21 Approved by: Anders Yarbrough M.D. on 04/11/2024 at 16:22
[2024-04-11 16:07] LABS: Add Manual Diff / Slide Review NO; Basophils Absolute Auto 100 /uL (0-100); Basophils Percent Auto 1.3 % (0-2); Eosinophils Absolute Auto 100 /uL (0-450); Hematocrit 42.4 % (41-53); Hemoglobin 14.2 g/dL (13.5-17.5); Lymphocytes Absolute Auto 800 /uL (1100-4500); Lymphocytes Percent Auto 14.4 % (25-40); Mean Corpuscular HGB Conc 33.5 % (30-36); Mean Corpuscular Hemoglobin 33.2 PG (26-34); Mean Corpuscular Volume 98.9 fL (80-100); Monocytes Absolute Auto 600 /uL (0-900); Monocytes Percent Auto 10.1 % (3-14); Neutrophils Absolute Auto 4200 /uL (1500-7000); Neutrophils Percent Auto 72.2 % (50-75); Platelet Count 134 X10^3/uL (150-400); Red Blood Cell Count 4.28 X10^6/uL (4.5-5.9); Red Cell Distribution Width 15.3 % (11.6-14.8); White Blood Cell Count 5.8 X10^3/uL (4.5-11.0)
[2024-04-11 16:13] LABS: Alanine Aminotransferase 198 IU/L (<50); Albumin Globulin Ratio 1.8 (1.0-2.8); Alkaline Phosphatase 129 U/L (38-126); Aspartate Aminotransferase 364 IU/L (17-59); BUN Creatinine Ratio 6.6 (6-22); Bilirubin Total 2.4 mg/dL (0.2-1.3); Blood Urea Nitrogen 6 mg/dL (9-20); Calcium 9.8 mg/dL (8.4-10.2); Carbon Dioxide 15 mmol/L (22-32); Chloride 99 mmol/L (98-107); Estimated Glomerular Filt Rate > 60 mL/min (>60); Ethanol (ETOH) < 10 mg/dL; Globulin 2.8 g/dL (1.7-4.1); Glucose 169 mg/dL (70-100); HEMOLYSIS < 15 (0-50); Magnesium 1.9 mg/dL (1.6-2.3); Potassium 3.7 mmol/L (3.4-5.1); Sodium 134 mmol/L (137-145); Total Protein 7.8 g/dL (6.3-8.2)
[2024-04-11] MEDS: THIAMINE 100 MG TABLET PO (16:17)
[2024-04-11] MEDS: MULTIVITAMIN 1 TABLET 1 TAB PO (16:17)
[2024-04-11] MEDS: FOLIC ACID 1 MG TABLET PO (16:18)
[2024-04-11] MEDS: PHENobarbital 65 MG/ML VIAL 130 MG IV (16:18)
[2024-04-11 16:21] LABS: Lactate (Lactic Acid) 9.3 mmol/L (0.7-2.1)
[2024-04-11] MEDS: dexmedeTOMIDine in 0.9 % NaCL 400 MCG/100 ML PLAST..BAG IV (17:24)
[2024-04-11 17:26] LABS: Reflexed Lactate in 2 Hours Y
--- NOTE | 2024-04-11 17:39 | P.HP_ITS ---
History of Present Illness History of Present Illness Date Patient Seen: 04/11/24 Time Patient Seen: 16:55 Chief complaint: Seizure,Possible ETOH withdrawal Narrative: This is a 24 year old male with PMH of EtOH use admitted after a seizure, which occurred after he attempted to stop drinking. He drinks nearly a fifth of hard liquor daily for the past few years. He develops shakiness and anxiety when he tries to stop typically. His last drink was late yesterday evening around 11 pm. This morning he had a witnessed seizure. Labs were also notable for an elevated bilirubin, AST, ALT. He was admitted to the ICU for further management. [facility], [facility] Medical History Abnormal findings on esophagogastroduodenoscopy (EGD) PUD (peptic ulcer disease) Social History Smoking Status: Never smoker Meds Home Medications and Allergies Home Medications Medication Instructions Recorded Confirmed Type ondansetron 4 mg disintegrating 4 mg PO Q8H PRN nausea and 05/14/22 Rx tablet vomiting #30 tabs ondansetron 4 mg disintegrating 4 mg PO Q8H PRN nausea and 07/15/22 Rx tablet vomiting #30 tabs ondansetron 4 mg disintegrating 4 mg PO Q4-6H PRN nausea and 10/14/22 Rx tablet vomiting #20 tabs omeprazole 40 mg capsule,delayed 40 mg PO DAILY 04/11/24 History release sucralfate 1 gram tablet (Carafate) 1 g PO PRN PRN upper gi pain 04/11/24 History Allergies Allergy/AdvReac Type Severity Reaction Status Date / Time No Known Drug Allergies Allergy Verified 04/11/24 15:28 Review of Systems Review of Systems Narrative: All other systems reviewed with the patient and are negative unless otherwise stated. Exam Vital Signs (past 8 hours): - 04/11/24 15:22 04/11/24 15:24 04/11/24 15:30 Temperature 98.3 F Pulse Rate 107 H 115 H 99 H Respiratory Rate 24 26 H 22 Blood Pressure 164/103 H Pulse Oximetry 97 98 94 Oxygen Delivery Method Room Air 04/11/24 15:56 04/11/24 15:56 04/11/24 16:06 Temperature Pulse Rate 95 H 80 Respiratory Rate 24 Blood Pressure 139/89 Pulse Oximetry 96 97 Oxygen Delivery Method 04/11/24 16:24 04/11/24 16:24 04/11/24 16:30 Temperature Pulse Rate 78 75 Respiratory Rate 19 20 Blood Pressure 145/97 H Pulse Oximetry 96 97 Oxygen Delivery Method 04/11/24 16:30 04/11/24 16:45 04/11/24 16:45 Temperature Pulse Rate 84 Respiratory Rate 22 Blood Pressure 142/99 H 140/89 Pulse Oximetry 100 Oxygen Delivery Method 04/11/24 17:00 04/11/24 17:00 Temperature Pulse Rate 79 Respiratory Rate 30 H Blood Pressure 142/93 H Pulse Oximetry 98 Oxygen Delivery Method Oxygen Delivery Method Room Air Narrative Exam Narrative: Gen: mildly anxious, slighly uncomfortable appearing CV: RRR no m/r/g Pulm: CTA b/l Abd: S NT ND Ext: No edema Neuro: mild tongue fasciculations and tremulousness Objective Labs 04/11/24 15:15 04/11/24 15:15 Labs: Laboratory Results - last 24 hr 04/11/24 15:15 WBC 5.8 RBC 4.28 L Hgb 14.2 Hct 42.4 MCV 98.9 MCH 33.2 MCHC 33.5 RDW 15.3 H Plt Count 134 L Neut % (Auto) 72.2 Lymph % (Auto) 14.4 L [place] % (Auto) 10.1 Eos % (Auto) 2.0 Baso % (Auto) 1.3 Neut # (Auto) 4200 Lymph # (Auto) 800 L [place] # (Auto) 600 Eos # (Auto) 100 Baso # (Auto) 100 PT 12.0 INR 1.0 Sodium 134 L Potassium 3.7 Chloride 99 Carbon Dioxide 15 L BUN 6 L Creatinine 0.91 Estimated GFR > 60 BUN/Creatinine Ratio 6.6 Glucose 169 H Lactate 9.3 H* Calcium 9.8 Magnesium 1.9 Total Bilirubin 2.4 H AST 364 H ALT 198 H Alkaline Phosphatase 129 H Total Protein 7.8 Albumin 5.0 Globulin 2.8 Albumin/Globulin Ratio 1.8 Ethyl Alcohol < 10 Assessment & Plan Assessment & Plan narrative: 1. Alcohol withdrawal seizure, severe alcohol withdrawal - with last drink <24 hours ago, development of seizure will treat aggressively with precedex infusion. Was given phenobarb in the ER. - continue librium 50 mg q6 hr for now - CIWA protocol ordered - Tele - repeat lactate pending. - MVI, folate, thiamine ordered 2. Alcoholic hepatitis - low DF with normal INR, no indication for steroids - continue to follow hepatic labs with bilirubin, AST/ALT 3. Mild hyponatremia - continue to follow with BMP 4. Thrombocytopenia - - likely related to etoh use, no signs or symptoms of bleeding, will continue to follow. Code: full DVT: low risk I have utilized all available immediate resources to obtain, update, or review the patient's current medications. Dispo: patient admitted under inpatient status. Unclear if will be able to discharge home or possible SNF, will have PT/OT evaluations. I spent 30 minutes providing critical care management this patient. This excludes time spent in performing separately billed procedures. Time-Based Coding :: [TOTAL MINUTES] spent with patient and on the chart (including review of chart, obtaining history, exam, reviewing outside data, placing orders, documenting exam and treatment plan, and counseling patient) on [DATE].
[2024-04-11] MEDS: chlordiazePOXIDE 25 MG CAPSULE 50 MG PO (17:52)
[2024-04-11] MEDS: SODIUM CHLORIDE 0.9% 1,000 ML 100 ML IV (17:54)
[2024-04-11 18:20] LABS: Creatine Kinase 234 U/L (55-170)
[2024-04-11 19:34] LABS: MRSA (Nasal) PCR DETECTED (Not Detect)
[2024-04-12] VITALS (22 sets, daily range): BP systolic 110–137; BP diastolic 70–96; PULSE 54–92; RESP 12–48; TEMP 36.3–36.6; O2SAT 94–99
[2024-04-12] MEDS: LORazepam 1 MG TABLET PO ×2 (00:01→08:58)
[2024-04-12] MEDS: chlordiazePOXIDE 25 MG CAPSULE 50 MG PO ×4 (00:01→18:00)
[2024-04-12] MEDS: SODIUM CHLORIDE 0.9% 1,000 ML 100 ML IV ×3 (03:02→23:25)
[2024-04-12 05:19] LABS: Add Manual Diff / Slide Review NO; Basophils Absolute Auto 0 /uL (0-100); Basophils Percent Auto 0.8 % (0-2); Eosinophils Absolute Auto 500 /uL (0-450); Hematocrit 37.9 % (41-53); Lymphocytes Absolute Auto 1200 /uL (1100-4500); Lymphocytes Percent Auto 21.3 % (25-40); Mean Corpuscular HGB Conc 34.4 % (30-36); Mean Corpuscular Hemoglobin 33.4 PG (26-34); Mean Corpuscular Volume 97.3 fL (80-100); Monocytes Absolute Auto 600 /uL (0-900); Monocytes Percent Auto 9.6 % (3-14); Neutrophils Absolute Auto 3500 /uL (1500-7000); Neutrophils Percent Auto 60.3 % (50-75); Platelet Count 106 X10^3/uL (150-400); Red Cell Distribution Width 15.6 % (11.6-14.8); White Blood Cell Count 5.9 X10^3/uL (4.5-11.0)
[2024-04-12 05:46] LABS: Creatine Kinase 449 U/L (55-170)
[2024-04-12 05:48] LABS: Alanine Aminotransferase 130 IU/L (<50); Albumin 4.1 g/dL (3.5-5.0); Albumin Globulin Ratio 1.5 (1.0-2.8); Alkaline Phosphatase 100 U/L (38-126); Aspartate Aminotransferase 223 IU/L (17-59); BUN Creatinine Ratio 5.6 (6-22); Bilirubin Total 2.8 mg/dL (0.2-1.3); Blood Urea Nitrogen 4 mg/dL (9-20); Carbon Dioxide 24 mmol/L (22-32); Chloride 103 mmol/L (98-107); Estimated Glomerular Filt Rate > 60 mL/min (>60); Globulin 2.7 g/dL (1.7-4.1); Glucose 83 mg/dL (70-100); HEMOLYSIS < 15 (0-50); Potassium 3.4 mmol/L (3.4-5.1); Sodium 134 mmol/L (137-145); Total Protein 6.8 g/dL (6.3-8.2)
[2024-04-12] MEDS: FOLIC ACID 1 MG TABLET PO (08:25)
[2024-04-12] MEDS: MULTIVITAMIN 1 TABLET 1 TAB PO (08:25)
[2024-04-12] MEDS: THIAMINE 100 MG TABLET PO (08:25)
--- NOTE | 2024-04-12 09:11 | DI.US.S_ITS ---
PROCEDURE: US ABDOMEN LIMITED INDICATIONS: eval liver, gallbladder, spleen - Abd pain, etoh, elev. bili TECHNIQUE: Real-time scanning was performed of the abdominal and retroperitoneal organs, with image documentation. COMPARISON: [facility], CT, CT ABDOMEN PELVIS W CON, 10/14/2022, 7:45. [facility], US, US ABDOMEN LIMITED, 07/15/2022, 15:01. FINDINGS: Liver: Measures 20.4 cm. Mildly enlarged. Increased echogenicity. Decreased sonographic penetration. No conspicuous region. Gallbladder: No gallstones. No wall thickening. No pericholecystic edema. Negative sonographic Enriquez's sign. Biliary ducts: Intrahepatic bile ducts are non-dilated. Extrahepatic bile duct caliber measures 6 mm. Normal is 6-7 mm or less in diameter, or 10 mm or less post-cholecystectomy. Pancreas: Visualized portions of the pancreas are sonographically normal. Spleen: Within normal limits. Measures 13.2 cm. Miscellaneous: No free abdominal fluid. IMPRESSION: 1. Hepatomegaly. Increased hepatic echogenicity most consistent with hepatic steatosis. Other forms of hepatocellular disease could have similar appearance. Decreased sonographic penetration of the liver which limits sensitivity. 2. No acute cholecystitis. No gallstones. 3. Spleen is within normal limits in size. Dictated by: Panchito Stubbs M.D. on 04/12/2024 at 14:16 Approved by: Panchito Stubbs M.D. on 04/12/2024 at 14:20
--- NOTE | 2024-04-12 09:24 | DIET.CONS ---
Dietary Consultation Note Admission Date: 04/11/2024 16:43 Assessment: 24 y M admitted for seizure, alcohol withdrawal. Nutrition consulted for etoh withdrawal. Per RN, pt sleeping, CIWA scores 5-8 this morning and overnight. Initial CIWA score of 28 per ED report. EMR reviewed. Drinks nearly a fifth of hard liquor/d for past 6 yrs. Noted to have alcoholic hepatitis. Ht: 177.8 cm Wt: 70.307 kg BMI: 22.2 UBW: 74.843 kg on 01/11/24 (-6% loss in 3 months, non-severe) Last BM: () MNA: 13 Delfino Score: 21 Diet: 04/11/24 Dinner General (Regular) Diet Diet Modifications: Labs: RBC 3.90 X10^6/uL (4.5-5.9) L 04/12/24 04:20 Hgb 13.0 g/dL (13.5-17.5) L 04/12/24 04:20 Hct 37.9 % (41-53) L 04/12/24 04:20 Creatinine 0.72 mg/dL (0.66-1.25) 04/12/24 04:20 Lactate 1.0 mmol/L (0.7-2.1) 04/11/24 17:45 Nutrition Diagnosis: Excessive alcohol intake r/t alcohol misuse aeb drinks nearly fifth of hard liquor daily and admitting CIWA score 28 Interventions: -f/u for full assessment Monitoring/Evaluations: po intakes Electronically Signed by: Miriam Courtney 04/12/24 09:24 Clinical Diet[address] [address]
[2024-04-12 09:42] LABS: Lipase 144 U/L (23-300)
[2024-04-12] MEDS: ACETAMINOPHEN 325 MG TABLET 650 MG PO (13:25)
[2024-04-12] MEDS: POTASSIUM CHLORIDE 20 MEQ TAB 40 MEQ PO (13:26)
--- NOTE | 2024-04-12 13:43 | PM.PN.1 ---
Subjective Subjective Interval history: 24 M admitted after alcohol withdrawal seizure. No hallucinations, still remains shaky, tremulous, and anxious. No nausea, tolerating diet. Some abdominal pain today. Still on precedex today, did receive some ativan this AM still despite precedex and librium. Exam Vital Signs (past 8 hours): - 04/12/24 06:00 04/12/24 06:00 04/12/24 07:00 Pulse Rate 65 Respiratory Rate 12 Blood Pressure 131/83 Pulse Oximetry 96 Oxygen Delivery Method Room Air Oxygen Flow Rate 0 04/12/24 08:00 04/12/24 08:00 04/12/24 09:00 Pulse Rate 59 L Respiratory Rate 13 Blood Pressure 128/82 Pulse Oximetry 97 98 Oxygen Delivery Method Room Air Oxygen Flow Rate 04/12/24 09:43 04/12/24 12:00 Pulse Rate 58 L 57 L Respiratory Rate 34 H 14 Blood Pressure 128/82 119/77 Pulse Oximetry 98 Oxygen Delivery Method Oxygen Flow Rate Oxygen Delivery Method Room Air Oxygen Flow Rate 0 Narrative Exam Narrative: Gen: mildly anxious, slighly uncomfortable appearing CV: RRR no m/r/g Pulm: CTA b/l Abd: S NT ND Ext: No edema Neuro: mild tongue fasciculations and tremulousness Objective Labs 04/12/24 04:20 04/12/24 04:20 Labs: Laboratory Results - last 24 hr 04/11/24 04/11/24 04/11/24 15:15 16:05 17:25 WBC 5.8 RBC 4.28 L Hgb 14.2 Hct 42.4 MCV 98.9 MCH 33.2 MCHC 33.5 RDW 15.3 H Plt Count 134 L Neut % (Auto) 72.2 Lymph % (Auto) 14.4 L [place] % (Auto) 10.1 Eos % (Auto) 2.0 Baso % (Auto) 1.3 Neut # (Auto) 4200 Lymph # (Auto) 800 L [place] # (Auto) 600 Eos # (Auto) 100 Baso # (Auto) 100 PT 12.0 INR 1.0 Sodium 134 L Potassium 3.7 Chloride 99 Carbon Dioxide 15 L BUN 6 L Creatinine 0.91 Estimated GFR > 60 BUN/Creatinine Ratio 6.6 Glucose 169 H Lactate 9.3 H* Calcium 9.8 Magnesium 1.9 Total Bilirubin 2.4 H AST 364 H ALT 198 H Alkaline Phosphatase 129 H Total Creatine Kinase 234 H Total Protein 7.8 Albumin 5.0 Globulin 2.8 Albumin/Globulin Ratio 1.8 Lipase Nasal Screen MRSA (PCR) Detected H Ethyl Alcohol < 10 04/11/24 04/12/24 17:45 04:20 WBC 5.9 RBC 3.90 L Hgb 13.0 L Hct 37.9 L MCV 97.3 MCH 33.4 MCHC 34.4 RDW 15.6 H Plt Count 106 L Neut % (Auto) 60.3 Lymph % (Auto) 21.3 L [place] % (Auto) 9.6 Eos % (Auto) 8.0 H Baso % (Auto) 0.8 Neut # (Auto) 3500 Lymph # (Auto) 1200 [place] # (Auto) 600 Eos # (Auto) 500 H Baso # (Auto) 0 PT INR Sodium 134 L Potassium 3.4 Chloride 103 Carbon Dioxide 24 BUN 4 L Creatinine 0.72 Estimated GFR > 60 BUN/Creatinine Ratio 5.6 L Glucose 83 Lactate 1.0 Calcium 9.0 Magnesium 2.0 Total Bilirubin 2.8 H AST 223 H ALT 130 H Alkaline Phosphatase 100 Total Creatine Kinase 449 H D Total Protein 6.8 Albumin 4.1 Globulin 2.7 Albumin/Globulin Ratio 1.5 Lipase 144 Nasal Screen MRSA (PCR) Ethyl Alcohol [facility] Medical History Abnormal findings on esophagogastroduodenoscopy (EGD) PUD (peptic ulcer disease) Social History Smoking Status: Never smoker Assessment & Plan Assessment & Plan narrative: 1. Alcohol withdrawal seizure, severe alcohol withdrawal - with last drink <24 hours prior to admission, development of seizure will treat aggressively with precedex infusion. Was given phenobarb in the ER. - continue librium 50 mg q6 hr. Wean from precedex as tolerated. - [facility] protocol ordered - Tele to continue today. - repeat lactate normal, acidosis with low bicarb on admit labs now improved. - MVI, folate, thiamine ordered 2. Alcoholic hepatitis - low DF with normal INR, no indication for steroids - continue to follow hepatic labs with bilirubin, AST/ALT - will order ultrasound of RUQ and spleen, previously had AST of approx 1600. Does have some mild abdominal pain today. Lipase is normal at 144. 3. Mild hyponatremia - continue to follow with BMP 4. Thrombocytopenia - - likely related to etoh use, no signs or symptoms of bleeding, will continue to follow. Code: full DVT: low risk I have utilized all available immediate resources to obtain, update, or review the patient's current medications. Dispo: patient admitted under inpatient status. Unclear if will be able to discharge home or possible SNF, will have PT/OT evaluations. I spent 30 minutes providing critical care management this patient. This excludes time spent in performing separately billed procedures. Time-Based Coding :: [TOTAL MINUTES] spent with patient and on the chart (including review of chart, obtaining history, exam, reviewing outside data, placing orders, documenting exam and treatment plan, and counseling patient) on [DATE].
[2024-04-12] MEDS: IBUPROFEN 400 MG TABLET 800 MG PO (15:55)
[2024-04-12] MEDS: diphenhydrAMINE 25 MG TABLET PO (15:55)
--- NOTE | 2024-04-12 15:56 | CM.DANOTE ---
Initial DCP Assessment Note Pt is a 24yo male, resident of [place], arrives after seizure with ETOH w/d PCP: Joelle CAGLE Payer: Gene Fernandez Reviewed chart, pt discussed in multidisciplinary rounds this morning. Patient with alcoholic hepatitis and likely to be here an addtl 24-48 hrs. Patient lives independently with margarito Messina and plans to return upon discharge. No barriers identified at this time to patient's safe discharge home w/family to assist; close outpatient f/u recommended. See MYESHA note for RORY assessment. MYESHA Braga Discharge Planning/Care Management CM Discharge Assessment Start: 04/12/24 15:55 Freq: Status: Active Protocol: Document 04/12/24 15:55 MAURILIO (Rec: 04/12/24 15:56 MAURILIO [id number]) Discharge Planning Assessment Assigned Postdoctoral Research Associate MYESHA Sunshine DPOA/Assigned Designee Name Mark Castillo, father ([place]) Contact Information [phone] Advance Directives? No History Provided By Patient Prior Living Arrangements House Household Members significant other Type of transporation used prior to Drives own vehicle admit Independent with ADL's Yes Is patient alert and oriented? Yes Barriers to Discharge No Discharge Plan Home Transportation Arrangement Family Referrals Initiated None needed Whiteboard Updated in Patient Room with Yes name and ext. # of Postdoctoral Research Associate
[2024-04-12] MEDS: MAGNESIUM SULFATE 2 GM/50 ML PIGGYBACK IV (15:57)
--- NOTE | 2024-04-12 16:00 | CM.SWNOTE ---
RECYCLING ATTENDANT Note Patient awake and alert this afternoon, millie Everett and Dad Mark at bedside. Dad just [place] from [place]. Patient requests this visit be alone with this RECYCLING ATTENDANT. Patient alert and oriented, calm mood, blunted affect. Good eye contact. According to conversation with patient alone at bedside: Psychosocial: Patient confirms he lives with millie independently in [place]. Millie drinks occasionally. 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 Patient lists his Dad Mark and millie Everett as his supports. Hx Use/Hx Treatment: Patient reports drinking heavily for 6 years. Patient had started causally drinking which increased over time. Patient denies hx of RORY treatment. Patient's last period of sobriety was 6 mo ago when he maintained sobriety for a month. Current Use: Patient reports drinking 1/2 750 ml bottle of hard alcohol daily after work, typically mixed with juice. On the weekend, patient's drinking increases to a bottle or two. MH: Patient denies hx of depression, anxiety or suicidal ideation. Patient has had counseling in the past and did not feel it was a good fit for him. Patient reports he feels he is a closed book unless taking to my Dad. Patient denies current suicidal ideation . Intervention: Patient shares that he has a family hx of alcoholism. Patient's Dad is a recovering alcoholic and is a sponsor in [employer]. Patient asked his Dad for help and remarks that he trusts his Dad to be understanding and support him through sobriety and recovery. Patient does not plan to seek help from within the [facility] or civilian community. Patient agreeable to this RECYCLING ATTENDANT leaving resource material; provided information on [facility] (telehealth MH support) and detox/outpatient RORY treatment and recovery resources. Encouraged patient to look on [employer] if he changes his mind about counseling and wants to look [place] counsel[place]. Patient states appreciation. Plan: Discharge home anticipated, w/family to support, outpatient RORY and counseling resources provided. MYESHA Braga
[2024-04-12] MEDS: dexmedeTOMIDine in 0.9 % NaCL 400 MCG/100 ML PLAST..BAG IV (17:12)
[2024-04-13] VITALS (20 sets, daily range): BP systolic 120–144; BP diastolic 71–105; PULSE 57–91; RESP 14–28; TEMP 36.3–36.9; O2SAT 94–100
[2024-04-13] MEDS: chlordiazePOXIDE 25 MG CAPSULE 50 MG PO ×4 (00:02→19:25)
[2024-04-13 05:32] LABS: Add Manual Diff / Slide Review NO; Basophils Absolute Auto 100 /uL (0-100); Basophils Percent Auto 1.3 % (0-2); Eosinophils Absolute Auto 400 /uL (0-450); Eosinophils Percent Auto 8.7 % (2-4); Hematocrit 38.1 % (41-53); Lymphocytes Absolute Auto 1300 /uL (1100-4500); Lymphocytes Percent Auto 27.2 % (25-40); Mean Corpuscular Hemoglobin 33.5 PG (26-34); Mean Corpuscular Volume 98.6 fL (80-100); Monocytes Absolute Auto 400 /uL (0-900); Monocytes Percent Auto 7.8 % (3-14); Neutrophils Absolute Auto 2700 /uL (1500-7000); Platelet Count 100 X10^3/uL (150-400); Red Blood Cell Count 3.86 X10^6/uL (4.5-5.9); Red Cell Distribution Width 15.5 % (11.6-14.8); White Blood Cell Count 4.9 X10^3/uL (4.5-11.0)
[2024-04-13 05:43] LABS: Alanine Aminotransferase 202 IU/L (<50); Albumin 4.2 g/dL (3.5-5.0); Albumin Globulin Ratio 1.6 (1.0-2.8); Alkaline Phosphatase 107 U/L (38-126); Aspartate Aminotransferase 472 IU/L (17-59); BUN Creatinine Ratio 5.3 (6-22); Bilirubin Total 2.1 mg/dL (0.2-1.3); Blood Urea Nitrogen 4 mg/dL (9-20); Calcium 9.2 mg/dL (8.4-10.2); Carbon Dioxide 26 mmol/L (22-32); Chloride 104 mmol/L (98-107); Estimated Glomerular Filt Rate > 60 mL/min (>60); Globulin 2.6 g/dL (1.7-4.1); Glucose 89 mg/dL (70-100); HEMOLYSIS < 15 (0-50); Sodium 135 mmol/L (137-145); Total Protein 6.8 g/dL (6.3-8.2)
[2024-04-13] MEDS: MULTIVITAMIN 1 TABLET 1 TAB PO (08:24)
[2024-04-13] MEDS: THIAMINE 100 MG TABLET PO (08:24)
[2024-04-13] MEDS: FOLIC ACID 1 MG TABLET PO (08:24)
--- NOTE | 2024-04-13 11:46 | CM.DPNOTE ---
Addendum entered by MYESHA Wong 04/13/24 15:38: CLERICAL DENTIST ASSISTANT received call from Shruthi Messina ([phone])[employer] for active duty . Asking to confirm admission for pt. report that the command will likely mandate OP MH/RORY treatment through the [facility] program. Recommended [facility] program. Asked that their team be notified at dc to coordinate OP medical f/u ([facility] Oneal [phone]). CLERICAL DENTIST ASSISTANT met with pt in room. Reported superintendent communications received. Reported understanding that the command will likely mandate MH/ORRY treatment. in [id number]. Asked this CLERICAL DENTIST ASSISTANT to schedule F[place] appt [place] ([phone]). CLERICAL DENTIST ASSISTANT scheduled OP f/u for 04/18/24Wednesday at 10am. Information provided to pt in room on appt/location. Pt appreciative. CLERICAL DENTIST ASSISTANT answered questions on program to best of ability and provided print out information. Deny further questions at this time. SL Original Note: DCP/CLERICAL DENTIST ASSISTANT note CLERICAL DENTIST ASSISTANT reviewed EMR. Per hospitalist, off precedex now but will continue librium taper. anticipate dc tomorrow. Per RN, CIWA overall lower today. Per RN, pt's father is hopeful for INPT RORY rehab but pt is less interested in that. CLERICAL DENTIST ASSISTANT met with pt in room. Father and fiance kindly left room for this CLERICAL DENTIST ASSISTANT and pt to chat privately. CLERICAL DENTIST ASSISTANT/pt reviewed different RORY/Alcohol recovery options both through /in civilian world. Pt interested in online 1:1 assistance, not group work at this time. CLERICAL DENTIST ASSISTANT provided print out information on [place]/Civilian MH/RORY recovery options. Pt reports being a 10/10 on readiness scale of change. Lists his health as a main factor supporting never drinking again. Denies need for work excuse letter, technically he is on leave until Wednesday. CLERICAL DENTIST ASSISTANT provided psychoeducation for expectation on the therapeutic process of recovery. Pt appreciative of information. Plan: Discharge home tomorrow anticipated, w/family to support, outpatient RORY and counseling resources provided. CM team will continue to follow closely MYESHA Wong
--- NOTE | 2024-04-13 14:03 | P.PN_ITS ---
Subjective Subjective Interval history: 24 M admitted after alcohol withdrawal seizure. No hallucinations, still remains shaky, tremulous, but much improved today. No nausea, tolerating diet. Able to come off precedex and was downgraded to floor care this morning. Liver transaminases up a bit, abdominal ultrasound was unremarkable. Exam Vital Signs (past 8 hours): - 04/13/24 07:00 04/13/24 08:00 04/13/24 09:00 Temperature 97.3 F L Pulse Rate 64 Respiratory Rate 16 Blood Pressure 120/77 Pulse Oximetry 99 98 Oxygen Delivery Method Room Air Room Air Oxygen Flow Rate 04/13/24 11:45 04/13/24 13:00 Temperature 98.5 F Pulse Rate 86 Respiratory Rate 20 Blood Pressure 127/97 H Pulse Oximetry 100 98 Oxygen Delivery Method Room Air Oxygen Flow Rate 0 Oxygen Delivery Method Room Air Oxygen Flow Rate 0 Narrative Exam Narrative: Gen: mildly anxious, slighly uncomfortable appearing CV: RRR no m/r/g Pulm: CTA b/l Abd: S NT ND Ext: No edema Neuro: mild tongue fasciculations and tremulousness Objective Labs 04/13/24 04:25 04/13/24 04:25 Labs: Laboratory Results - last 24 hr 04/13/24 04:25 WBC 4.9 RBC 3.86 L Hgb 13.0 L Hct 38.1 L MCV 98.6 MCH 33.5 MCHC 34.0 RDW 15.5 H Plt Count 100 L Neut % (Auto) 55.0 Lymph % (Auto) 27.2 [place] % (Auto) 7.8 Eos % (Auto) 8.7 H Baso % (Auto) 1.3 Neut # (Auto) 2700 Lymph # (Auto) 1300 [place] # (Auto) 400 Eos # (Auto) 400 Baso # (Auto) 100 Sodium 135 L Potassium 4.0 Chloride 104 Carbon Dioxide 26 BUN 4 L Creatinine 0.75 Estimated GFR > 60 BUN/Creatinine Ratio 5.3 L Glucose 89 Calcium 9.2 Magnesium 2.0 Total Bilirubin 2.1 H AST 472 H ALT 202 H Alkaline Phosphatase 107 Total Protein 6.8 Albumin 4.2 Globulin 2.6 Albumin/Globulin Ratio 1.6 [facility] Medical History Abnormal findings on esophagogastroduodenoscopy (EGD) PUD (peptic ulcer disease) Social History household members: significant other Smoking Status: Never smoker Assessment & Plan Assessment & Plan narrative: 1. Alcohol withdrawal seizure, severe alcohol withdrawal - with last drink <24 hours prior to admission, development of seizure patient was treated aggressively with precedex infusion. Was given phenobarb in the ER. Now able to wean off precedex. - continue librium 50 mg q6 hr today, ordered for q12 tomorrow to start librium taper. - [facility] protocol ordered - Tele to continue today. - repeat lactate normal, acidosis with low bicarb on admit labs now improved. - MVI, folate, thiamine ordered 2. Alcoholic hepatitis - low DF with normal INR, no indication for steroids - continue to follow hepatic labs with bilirubin, AST/ALT - RUQ US showed hepatomegaly, no cirrhosis or splenomegaly. 3. Mild hyponatremia - continue to follow with BMP, improved today. 4. Thrombocytopenia - - likely related to etoh use, no signs or symptoms of bleeding, will continue to follow. Code: full DVT: low risk I have utilized all available immediate resources to obtain, update, or review the patient's current medications. Dispo: patient admitted under inpatient status. Likely discharge home in 1-2 days after librium taper. Downgrade to acute care floor bed now that he is off precedex. I spent 30 minutes providing critical care management this patient. This excludes time spent in performing separately billed procedures. Time-Based Coding :: [TOTAL MINUTES] spent with patient and on the chart (including review of chart, obtaining history, exam, reviewing outside data, placing orders, documenting exam and treatment plan, and counseling patient) on [DATE].
[2024-04-13] MEDS: ACETAMINOPHEN 325 MG TABLET 650 MG PO (19:23)
[2024-04-14] VITALS: BP 142/86; RESP 22; O2SAT 99
[2024-04-14 01:06] VITALS: BP 142/86; PULSE 91; O2SAT 99
[2024-04-14] MEDS: chlordiazePOXIDE 25 MG CAPSULE 50 MG PO ×2 (01:07→05:29)
[2024-04-14] MEDS: ACETAMINOPHEN 325 MG TABLET 650 MG PO (01:08)
[2024-04-14 04:46] VITALS: BP 133/81; PULSE 64; RESP 22; TEMP 36.8; O2SAT 98
[2024-04-14 05:19] LABS: Add Manual Diff / Slide Review NO; Basophils Absolute Auto 100 /uL (0-100); Basophils Percent Auto 0.9 % (0-2); Eosinophils Absolute Auto 600 /uL (0-450); Eosinophils Percent Auto 6.4 % (2-4); Hematocrit 40.4 % (41-53); Hemoglobin 13.8 g/dL (13.5-17.5); Lymphocytes Absolute Auto 1600 /uL (1100-4500); Lymphocytes Percent Auto 17.6 % (25-40); Mean Corpuscular HGB Conc 34.3 % (30-36); Mean Corpuscular Hemoglobin 33.7 PG (26-34); Mean Corpuscular Volume 98.3 fL (80-100); Monocytes Absolute Auto 800 /uL (0-900); Monocytes Percent Auto 9.1 % (3-14); Neutrophils Absolute Auto 5900 /uL (1500-7000); Platelet Count 127 X10^3/uL (150-400); Red Blood Cell Count 4.11 X10^6/uL (4.5-5.9); Red Cell Distribution Width 15.4 % (11.6-14.8); White Blood Cell Count 8.9 X10^3/uL (4.5-11.0)
[2024-04-14 05:38] LABS: Alanine Aminotransferase 182 IU/L (<50); Albumin 4.5 g/dL (3.5-5.0); Albumin Globulin Ratio 1.6 (1.0-2.8); Alkaline Phosphatase 99 U/L (38-126); Aspartate Aminotransferase 205 IU/L (17-59); BUN Creatinine Ratio 15.4 (6-22); Bilirubin Total 1.2 mg/dL (0.2-1.3); Blood Urea Nitrogen 12 mg/dL (9-20); Calcium 9.8 mg/dL (8.4-10.2); Carbon Dioxide 27 mmol/L (22-32); Chloride 101 mmol/L (98-107); Estimated Glomerular Filt Rate > 60 mL/min (>60); Globulin 2.9 g/dL (1.7-4.1); Glucose 97 mg/dL (70-100); HEMOLYSIS < 15 (0-50); Magnesium 1.8 mg/dL (1.6-2.3); Potassium 3.9 mmol/L (3.4-5.1); Sodium 136 mmol/L (137-145); Total Protein 7.4 g/dL (6.3-8.2)
[2024-04-14 08:00] LABS: Hepatitis B Surface Antigen NEGATIVE s/c (NEGATIVE)
[2024-04-14 08:17] LABS: Hep C Virus Ab w/Reflex Quant NEGATIVE s/c (NEGATIVE)
[2024-04-14] MEDS: THIAMINE 100 MG TABLET PO (08:34)
[2024-04-14] MEDS: MULTIVITAMIN 1 TABLET 1 TAB PO (08:34)
[2024-04-14] MEDS: FOLIC ACID 1 MG TABLET PO (08:34)
--- NOTE | 2024-04-14 08:46 | PM.PN.1 ---
Subjective Subjective Interval history: 24 M admitted after alcohol withdrawal seizure. No hallucinations, still remains shaky, tremulous, but much improved today. No nausea, tolerating diet. Able to come off precedex and was downgraded to floor care this morning. Liver transaminases up a bit, abdominal ultrasound was unremarkable. S: Exam Vital Signs (past 8 hours): - 04/14/24 01:06 04/14/24 01:06 04/14/24 04:46 Temperature 98.2 F Pulse Rate 91 H 64 Respiratory Rate 22 Blood Pressure 142/86 H 133/81 Pulse Oximetry 99 98 Oxygen Flow Rate 0 Oxygen Delivery Method Room Air Oxygen Flow Rate 0 Narrative Exam Narrative: NAD, alert and oriented. Fluent speech. Lungs are clear, normal rate and effort. Heart is regular, no murmur gallop or rub. Abdomen is soft, non distended. Extremities are free of edema. Objective Labs 04/14/24 04:25 04/14/24 04:25 Labs: Laboratory Results - last 24 hr 04/14/24 04:25 WBC 8.9 D RBC 4.11 L Hgb 13.8 Hct 40.4 L MCV 98.3 MCH 33.7 MCHC 34.3 RDW 15.4 H Plt Count 127 L Neut % (Auto) 66.0 Lymph % (Auto) 17.6 L [place] % (Auto) 9.1 Eos % (Auto) 6.4 H Baso % (Auto) 0.9 Neut # (Auto) 5900 Lymph # (Auto) 1600 [place] # (Auto) 800 Eos # (Auto) 600 H Baso # (Auto) 100 Sodium 136 L Potassium 3.9 Chloride 101 Carbon Dioxide 27 BUN 12 Creatinine 0.78 Estimated GFR > 60 BUN/Creatinine Ratio 15.4 Glucose 97 Calcium 9.8 Magnesium 1.8 Total Bilirubin 1.2 AST 205 H ALT 182 H Alkaline Phosphatase 99 Total Protein 7.4 Albumin 4.5 Globulin 2.9 Albumin/Globulin Ratio 1.6 Hep Bs Antigen Negative Hepatitis C Antibody Negative [facility] Medical History Abnormal findings on esophagogastroduodenoscopy (EGD) PUD (peptic ulcer disease) Social History household members: significant other Smoking Status: Never smoker Assessment & Plan Assessment & Plan narrative: 1. Alcohol withdrawal seizure, severe alcohol withdrawal. Present on admission and active. - with last drink <24 hours prior to admission, development of seizure patient was treated aggressively with precedex infusion. Was given phenobarb in the ER. Now able to wean off precedex. - continue librium 50 mg q6 hr today, ordered for q12 tomorrow to start librium taper. - [facility] protocol ordered - Tele to continue today. - repeat lactate normal, acidosis with low bicarb on admit labs now improved. - MVI, folate, thiamine ordered 2. Alcoholic hepatitis, present on admission and active. - low DF with normal INR, no indication for steroids - continue to follow hepatic labs with bilirubin, AST/ALT - RUQ US showed hepatomegaly, no cirrhosis or splenomegaly. 3. Mild hyponatremia, present on admission and active. - continue to follow with BMP, improved today. 4. Thrombocytopenia, present on admission and active. - likely related to etoh use, no signs or symptoms of bleeding, will continue to follow. Code: full DVT: low risk I have utilized all available immediate resources to obtain, update, or review the patient's current medications. Dispo: patient admitted under inpatient status. Likely discharge home in 1-2 days after librium taper. Downgrade to acute care floor bed now that he is off precedex. Time-Based Coding :: [TOTAL MINUTES] spent with patient and on the chart (including review of chart, obtaining history, exam, reviewing outside data, placing orders, documenting exam and treatment plan, and counseling patient) on [DATE].
--- NOTE | 2024-04-14 09:22 | P.DS_ITS ---
History of Present Illness History of Present Illness Chief complaint: Seizure,Possible ETOH withdrawal Narrative: This is a 24 year old male with PMH of EtOH use admitted after a seizure, which occurred after he attempted to stop drinking. He drinks nearly a fifth of hard liquor daily for the past few years. He develops shakiness and anxiety when he tries to stop typically. His last drink was late yesterday evening around 11 pm. This morning he had a witnessed seizure. Labs were also notable for an elevated bilirubin, AST, ALT. He was admitted to the ICU for further management. Discharge Providers Provider Date of admission: 04/11/24 16:43 Discharge Date: 04/14/24 Primary care physician: Joelle CAGLE Provider Consults: 04/11/24 15:54 Consult to Dietitian, Adult Routine Comment: Reason For Exam: etoh withdrawal Discharge provider: Rudolph Mccurdy MD Summary Hospital Course Discharge Diagnosis: 1. Alcohol withdrawal seizure, severe alcohol withdrawal. Present on admission and resolved. 2. Alcoholic hepatitis, present on admission and improved. - low DF with normal INR, no indication for steroids - continue to follow hepatic labs with bilirubin, AST/ALT - RUQ US showed hepatomegaly, no cirrhosis or splenomegaly. 3. Mild hyponatremia, present on admission and improved. - continue to follow with BMP, improved today. 4. Thrombocytopenia, present on admission and stable. - likely related to etoh use, no signs or symptoms of bleeding, will continue to follow. Hospital Course: He was admitted with acute alcohol withdrawal syndrome as well as a withdrawal seizure. He was treated with Precedex and Librium as well as the CIWA protocol. His platelets were low in his LFTs were elevated. An ultrasound of the right upper quadrant was negative for acute pathology. He improved and was able to come off from Precedex on April 13 and downgraded to the floor. He was still somewhat shaky. On the day of discharge he was back to baseline, and had no hallucinations, diarrhea or shakiness. He was felt to be stable for discharge home and we will be starting AA meetings. His father is out from [place], is also in the recovery program.. Status at Discharge Cognitive/behavioral status at discharge: oriented Functional status at discharge: independent ambulation Overall status at discharge: patient is back to baseline Time Spent with Patient Time spent: Greater than 30 minutes Exam Vital Signs (past 8 hours): - 04/14/24 04:46 Temperature 98.2 F Pulse Rate 64 Respiratory Rate 22 Blood Pressure 133/81 Pulse Oximetry 98 Oxygen Flow Rate 0 Oxygen Delivery Method Room Air Oxygen Flow Rate 0 Narrative Exam Narrative: NAD, alert and oriented. Fluent speech. Lungs are clear, normal rate and effort. Heart is regular, no murmur gallop or rub. Abdomen is soft, non distended. Extremities are free of edema. No tremor. Objective ECG Impression: Sinus tachycardia Imaging CT scan - head: Radiologist's impression: No acute intracranial pathology. US - abdomen: Radiologist's impression: 1. Hepatomegaly. Increased hepatic echogenicity most consistent with hepatic steatosis. Other forms of hepatocellular disease could have similar appearance. Decreased sonographic penetration of the liver which limits sensitivity. 2. No acute cholecystitis. No gallstones. 3. Spleen is within normal limits in size. Labs 04/14/24 04:25 04/14/24 04:25 Labs: Laboratory Results - last 24 hr 04/14/24 04:25 WBC 8.9 D RBC 4.11 L Hgb 13.8 Hct 40.4 L MCV 98.3 MCH 33.7 MCHC 34.3 RDW 15.4 H Plt Count 127 L Neut % (Auto) 66.0 Lymph % (Auto) 17.6 L [place] % (Auto) 9.1 Eos % (Auto) 6.4 H Baso % (Auto) 0.9 Neut # (Auto) 5900 Lymph # (Auto) 1600 [place] # (Auto) 800 Eos # (Auto) 600 H Baso # (Auto) 100 Sodium 136 L Potassium 3.9 Chloride 101 Carbon Dioxide 27 BUN 12 Creatinine 0.78 Estimated GFR > 60 BUN/Creatinine Ratio 15.4 Glucose 97 Calcium 9.8 Magnesium 1.8 Total Bilirubin 1.2 AST 205 H ALT 182 H Alkaline Phosphatase 99 Total Protein 7.4 Albumin 4.5 Globulin 2.9 Albumin/Globulin Ratio 1.6 Hep Bs Antigen Negative Hepatitis C Antibody Negative [facility] Medical History Abnormal findings on esophagogastroduodenoscopy (EGD) PUD (peptic ulcer disease) Social History household members: significant other Smoking Status: Never smoker Discharge Assessment & Plan Assessment and Plan Assessment: 1. Alcohol withdrawal seizure, severe alcohol withdrawal. Present on admission and resolved. 2. Alcoholic hepatitis, present on admission and improved. 3. Mild hyponatremia, present on admission and improved. 4. Thrombocytopenia, present on admission and stable. Plan of Treatment: Discharge home with Librium to use for a taper. Alcohol cessation is advised, [place] Close follow up with PCP within 5-6 days is also recommended. Discharge Plan Discharge Plan Patient Disposition: Home Provider Discharge Comment: Stable for discharge home with close follow up. Discharge orders & Medications Prescriptions: New chlordiazepoxide HCl 25 mg capsule 25 mg PO Q8H PRN (Reason: anxiety) Qty: 14 0RF Follow up/Referrals: ProviderJoelle [Primary Care Provider] - Discharge Health Status Multidrug resistant organism: MRSA Diet/Activity/Treatments Diet: Diet as Tolerated Activity: As tolerated Visit Report/Discharge Packet Instructions: Alcohol Use Disorder, DI for Alcohol Use Disorder Stand Alone Forms: Patient Portal/API Discharge Data Primary Care Provider: Joelle Hatfield
--- NOTE | 2024-04-14 09:40 | PC.NURSE ---
pt discharged home with family; escorted to private vehicle via w/c; all belongings sent w/ pt including phone, volunteer patient representative, and clothes; iv removed intact; written and verbal discharge instructions given to pt, girlfriend, and father; verbalized understanding and denied questions
--- NOTE | 2024-04-14 10:39 | CM.DPNOTE ---
DCP Note INSTRUCTOR PSYCHIATRIC AIDE reviewed EMR. Per chart, pt cleared for home today INSTRUCTOR PSYCHIATRIC AIDE attempted to meet with pt, already left the floor. P: home today with family support and OP f/u with [facility] ([place] [facility]). CM team will continue to follow as needed MYESHA Wong
[2024-04-15 05:13] LABS: Hepatitis B Core Antibody Negative (Negative)
[2024-04-15 07:36] LABS: Hepatitis B Surf Ab Qualitativ Non Reactive (.)
== END 2024-04-14 09:39 | disposition home or self-care (01) | DRG 897 ==
LOC: ED 16:42 → AC 16:43 → ICU 17:18
PROVIDERS: Admitting Provider Internal Medicine; Emergency Provider Student in an Organized Health Care Education/Training Program; Referring Provider Student in an Organized Health Care Education/Training Program; Visit Provider Internal Medicine
DX: F10.939 Alcohol use, unspecified with withdrawal, unspecified (principal); E87.1 Hypo-osmolality and hyponatremia; K70.10 Alcoholic hepatitis without ascites; D69.6 Thrombocytopenia, unspecified; Y90.0 Blood alcohol level of less than 20 mg/100 ml
CPT/HCPCS: 36415; 70450; 76705; 80053; 80320; 82550; 83605; 83690; 83735; 85025; 85610; 86704; 86706; 86803; 87340; 87797; 93005; 93010; 96374; 96375; 99284; 99285; J2060; J2560; J3475

== ENCOUNTER → 2024-10-04 07:54 | Outpatient (CLI) | payer OTHER, SELFPAY ==
[2024-04-11 16:55] VITALS: BMI 22.2
--- NOTE | 2024-10-04 07:55 | DI.NM.S_ITS ---
PROCEDURE: NM GASTRIC EMPTYING STUDY RADIOPHARMACEUTICAL: 1.0 mCi Tc-99m sulfur colloid in oatmeal. INDICATIONS: EVAL FOR GASTROPARESIS TECHNIQUE: A Tc-99m labeled sulfur colloid labeled egg sandwich or oatmeal was served to the patient. Anterior and posterior planar images of the abdomen were obtained at 0 minutes and 30 minutes, then at hourly intervals up to 4 hours. The patient was upright and ambulating during the interval. COMPARISON: None. FINDINGS: The stomach has normal size, morphology, and position. There is normal emptying of solid gastric contents from the stomach by visual inspection. No gastroesophageal reflux is visualized. The percentage of tracer retained at specific time points are as follows: Time point Percent gastric retention Normal range 30 minutes 84 70% or more 1 hour 64 30% to 90% 2 hours 25 60% or less 3 hours 20 30% or less 4 hours 10 10% or less IMPRESSION: Normal gastric emptying. Dictated by: Anders Yarbrough M.D. on 10/04/2024 at 14:08 Approved by: Anders Yarbrough M.D. on 10/04/2024 at 14:09
== END ==
PROVIDERS: Referring Provider Internal Medicine Gastroenterology; Visit Provider Internal Medicine Gastroenterology
DX: K92.0 Hematemesis (principal)
CPT/HCPCS: 78264; A9541